=== PATIENT | male | born 1955 | race Caucasian/White ===

== ENCOUNTER 2017-08-02 20:00 | Inpatient (IN) | payer OTHER ==
[~2017-08-02] VITALS: Ht 165.1 cm; Wt 96.0 kg
[~2017-08-02 20:00] MED LIST: AMLO-145 PO; ASPI-676; CLOP75TA27 PO; CYCL-319 PO; HYDR-3498 PO; HYDR10TA36 PO; NAPR-260 PO; NAPR375T PO; OMEP20CA9 PO; RISP2TAB3 PO
[2017-08-02] MEDS ORDERED: SODIUM CHLORIDE 0.9% 1L BAG IV* STA (20:36)
[2017-08-02 20:57] LABS: ABNORMAL IP MESSAGE 1; BASOPHILS % 0.2 % (0.0-2.0); HEMATOCRIT 45.1 % (42.0-52.0); HEMOGLOBIN 14.9 g/dl (14.0-18.0); LYMPHOCYTES # 1.1 10^3/ul (0.8-2.9); LYMPHOCYTES % 5.1 % (15.0-51.0); MEAN CORPUSCULAR HEMOGLOBIN 28.3 pg (29.0-33.0); MEAN CORPUSCULAR VOLUME 85.6 fl (82.0-101.0); MEAN PLATELET VOLUME 10.3 fl (7.4-10.4); MONOCYTE # 1.6 10^3/ul (0.3-0.9); MONOCYTES % 7.5 % (0.0-11.0); NEUTROPHIL # 18.6 10^3/ul (1.6-7.5); NEUTROPHILS % 86.1 % (39.0-77.0); PLATELET COUNT 221 10^3/UL (140-415); POSITIVE DIFF @See below; RED BLOOD COUNT 5.27 10^6/ul (4.70-6.10); RED CELL DISTRIBUTION WIDTH 13.8 % (11.5-14.5); WHITE BLOOD COUNT 21.6 10^3/ul (4.8-10.8)
[2017-08-02] MEDS ORDERED: ACETAMINOPHEN 325 MG TAB PO ONE (21:00)
[2017-08-02 21:12] LABS: INR 1.02; PARTIAL THROMBOPLASTIN TIME 31.7 Sec (25.0-35.0); PROTIME 13.4 Sec (12.2-14.2)
[2017-08-02 21:15] LABS: ALBUMIN 4.4 g/dl (3.3-4.9); ALBUMIN/GLOBULIN RATIO 1.18; BILIRUBIN,INDIRECT 1.2 mg/dl (0-1.1); BILIRUBIN,TOTAL 1.2 mg/dl (0.2-1.3); CALCIUM 9.6 mg/dl (8.4-10.2); TOTAL PROTEIN 8.1 g/dl (6.1-8.1)
[2017-08-02 21:23] LABS: POTASSIUM 2.9 mmol/L (3.5-5.1)
[2017-08-02] MEDS ORDERED: CEFEPIME 2GM/50 ML (PMX) 50 ML IVPB STA (22:39)
--- NOTE | 2017-08-02 22:52 | RADRPT ---
PROCEDURE: XR Chest. CLINICAL INDICATION: Possible sepsis. TECHNIQUE: Single frontal view of the chest COMPARISON: 07/23/2013 FINDINGS: Mild cardiomegaly. Mild left lung base atelectasis. The lungs are otherwise clear. No signs of pleur al fluid or pneumothorax are seen. The osseous structures and soft tissues are unremarkable. IMPRESSION: Mild left lung base atelectasis, new over the interval. RPTAT: [facility] Physician Haile Date Time Electronically viewed and signed by Enrike Edmondson Physician on 08/02/2017 22:52 RS/
[2017-08-02 23:00] VITALS: TEMP 99.2
[2017-08-02] MEDS ORDERED: VANCOMYCIN 1 GM (PMX) 250 ML IVPB ONE (23:00)
--- NOTE | 2017-08-02 23:04 | ERA ---
ER Documentation Chief Complaint Date/Time DATE: 08/02/17 TIME: 23:01 Chief Complaint fever HPI This is a 62-year-old male with a history of dementia, previous stroke on aspirin and Plavix, hypertension is presenting with signs concerning for an infection and previous follow-up. The patient reportedly has not been feeling well for several days. He has had fever, chills with nausea and vomiting, nonbilious and nonbloody. The patient denies any chest pain or trouble breathing. It is unclear if he has had a cough. He does endorse epigastric discomfort, but no other abdominal pain. He denies any trouble with urination or bowel movements. The patient reportedly fell a few days ago and sustained a laceration to the left forehead. He does not endorse falling today. That said , there is an element of confusion and the patient, so it is unclear if all details are accurate. The patient was reportedly found on the ground by family this afternoon. It is unclear exactly how long he was therefore. Patient does not have any focal deficits. He has no weakness or numbness or tingling to the face or extremities. ROS All systems reviewed and are negative except as per history of present illness. Medications Home Meds Active Scripts Cyclobenzaprine Hcl* (Cyclobenzaprine Hcl*) 10 Mg Tablet, 10 MG PO TID, #15 TAB Prov:GLORIA RADER PA-C 07/22/15 Naproxen* (Naprosyn*) 500 Mg Tablet, 500 MG PO BID Y for PAIN AND/OR INFLAMMATION, #30 TAB Prov:GLORIA RADER PA-C 07/22/15 Hydrocodone Bit-Acetaminophen* ([place]*) 5-325 Mg Tab, 1 TAB PO Q6 Y for PAIN, # 15 TAB Prov:GLORIA RADER PA-C 07/22/15 Reported Medications Omeprazole* (Prilosec*) 20 Mg Capsule.dr, 20 MG PO DAILY 07/19/13 Clopidogrel Bisulfate (Clopidogrel) 75 Mg Tablet, 75 MG PO DAILY 07/19/13 Risperidone* (Risperidone*) 2 Mg Tablet, 2 MG PO QHS 07/19/13 Hydralazine Hcl* (Apresoline*) 10 Mg Tab, 10 MG PO BID 07/19/13 Naproxen* (Naprosyn*) 375 Mg Tablet, 375 MG PO BID 07/19/13 Amlodipine Besylate* (Amlodipine Besylate*) 5 Mg Tablet, 10 MG PO DAILY 07/19/13 Aspirin (Parisa Child) 81 Mg Chew 07/10/10 Allergies Allergies: Coded Allergies: No Known Drug Allergy (Verified Allergy, Mild, 07/23/13) PMhx/Soc Medical and Surgical Hx: pt denies Surgical Hx History of Surgery: No Anesthesia Reaction: No Hx Neurological Disorder: Yes (STROKE 2,3 YRS AGO WITH NO RESIDUAL) Hx Respiratory Disorders: No Hx Cardiac Disorders: No Hx Psychiatric Problems: No Hx Miscellaneous Medical Probl: Yes (HTN, CVA 2008) Hx Alcohol Use: Yes Hx Substance Use: No Hx Tobacco Use: No Smoking Status: Never smoker FmHx Family History: No diabetes Physical Exam Vitals Vital Signs Date Time Temp Pulse Resp B/P Pulse Ox O2 Delivery O2 Flow Rate FiO2 08/02/17 23:00 99.2 80 20 126/75 96 Nasal Cannula 3.0 08/02/17 20:08 103.6 95 20 160/89 98 08/02/17 20:08 103.6 95 20 160/89 98 Nasal Cannula 3.0 Physical Exam Const: NAD, Well developed, Well nourished Head: Atraumatic Eyes: Normal Conjunctiva ENT: Normal External Ears, Nose and Mouth. Neck: Full range of motion..~ No meningismus. Resp: Clear to auscultation bilaterally Cardio: Regular rate and rhythm, no murmurs Abd: Soft, non distended, epigastric tenderness. Normal bowel sounds Skin: No petechiae or rashes Back: No midline or flank tenderness Ext: No cyanosis, or edema, NBNB vomitus on his shoes Neur: Awake and alert, Oriented x 1 to person, Normal strength, normal sensation Psych: Normal Mood and Affect Result Diagram: 08/02/17201408/02/172014 Results 24 hrs Laboratory Tests Test 08/02/17 20:15 White Blood Count 21.610^3/ul Red Blood Count 5.2710^6/ul Hemoglobin 14.9g/dl Hematocrit 45.1% Mean Corpuscular Volume 85.6fl Mean Corpuscular Hemoglobin 28.3pg Mean Corpuscular Hemoglobin Concent 33.0g/dl Red Cell Distribution Width 13.8% Platelet Count 16957^3/UL Mean Platelet Volume 10.3fl Neutrophils % 86.1% Lymphocytes % 5.1% Monocytes % 7.5% Eosinophils % 0.0% Basophils % 0.2% Nucleated Red Blood Cells % 0.0/100WBC Neutrophils # 18.610^3/ul Lymphocytes # 1.110^3/ul Monocytes # 1.610^3/ul Eosinophils # 0.010^3/ul Basophils # 0.010^3/ul Nucleated Red Blood Cells # 0.010^3/ul Prothrombin Time 13.4Sec Prothrombin Time Ratio 1.0 INR International Normalized Ratio 1.02 Activated Partial Thromboplast Time 31.7Sec Sodium Level 141mmol/L Potassium Level 2.9mmol/L Chloride Level 101mmol/L Carbon Dioxide Level 29mmol/L Anion Gap 14 Blood Urea Nitrogen 17mg/dl Creatinine 1.00mg/dl Glucose Level 125mg/dl Lactic Acid Level 2.5mmol/L Calcium Level 9.6mg/dl Total Bilirubin 1.2mg/dl Direct Bilirubin 0.00mg/dl Indirect Bilirubin 1.2mg/dl Aspartate Amino Transf (AST/SGOT) 40IU/L Alanine Aminotransferase (ALT/SGPT) 27IU/L Alkaline Phosphatase 97IU/L Creatine Kinase 1256IU/L Total Protein 8.1g/dl Albumin 4.4g/dl Globulin 3.70g/dl Albumin/Globulin Ratio 1.18 Current Medications Medications (Trade) Dose Ordered Sig/Huber Route PRN Reason Start Time Stop Time Status Last Admin Dose Admin Sodium Chloride (NS) 2,500 ml BOLUS OVER 2 HOURS STAT IV* 08/02/17 20:36 08/02/17 20:39 DC 08/02/17 20:44 Acetaminophen 650 mg 650 mg ONCE ONCE PO 08/02/17 21:00 08/02/17 21:01 DC 08/02/17 21:20 Cefepime HCl 50 ml @ 100 mls/hr ONCE STAT IVPB 08/02/17 22:39 08/02/17 23:08 DC 08/02/17 22:57 Vancomycin HCl 250 ml @ 125 mls/hr ONCE ONCE IVPB 08/02/17 23:00 08/03/17 00:59 DC 08/02/17 23:37 Sodium Chloride (NS) 1,000 ml @ 80 mls/hr [id number] IV 08/02/17 23:20 08/03/17 11:49 08/02/17 23:37 Procedures/[facility] MDM The patient presents after being found down. He has symptoms consistent with an infection. I am also concerned of rhabdomyolysis. The patient does have a cut his left forehead that he states is old. However, we will obtained CT imaging of the head to evaluate for any possible head trauma. Labs Patient's blood work was obtained and reviewed. The patient does have a significant leukocytosis with a white count of 21.6. He is febrile. I am concerned of a systemic infection. He is not anemic. His platelet count is unremarkable. The patient's CMP does demonstrate a hypokalemia with potassium of 2.9. He will be given oral potassium repletion. The patient's lactic acid was initially 2.5. I am concerned of sepsis. His CK is over 1000, is concerning for rhabdomyolysis. Imaging CTH IMPRESSION: Chronic changes of atrophy and small vessel disease white matter are increased over interval since 07/23/2013. Otherwise, no acute process in the head. Electronically viewed and signed by Physician Haile on 08/02/2017 23:34 CXR IMPRESSION: Mild left lung base atelectasis, new over the interval. Electronically viewed and signed by Physician Haile on 08/02/2017 22:52 EKG EKG read by me: Rate/Rhythm: Regular rate and rhythm at a rate of 76 Intervals: Normal [place]: Left shifted TWI inversions in lateral leads, no ELAINA or STD Impression: No evidence of acute ischemia or arrhythmia Treatment/Disposition Patient's infectious symptoms have not stabilized and the patient is at risk of rapid decompensation. The patient will be admitted for careful hydration, antibiotic therapy, and infectious source control. The patient also has rhabdomyolysis. Hydration will help to improve this as well. Fortunately, he does not have an associated kidney injury. Patient does not have findings consistent with pneumonia on the chest x-ray. The patient's leukocytosis may indicate bacteremia. Blood cultures were sent off. Urine testing will also need to be performed. Broad-spectrum antibiotics will be initiated after collection of the blood work. Fortunately, the patient's CT head did not reveal any acute intracranial abnormality. He does not have anything focal, and I do not suspect a neurologic etiology from his fall. The patient does not have symptoms consistent with a cardiac etiology either. I do suspect an infectious cause. Severe Sepsis criteria: Infectious source: Unknown End organ damage indicated by: Lactate > 2.0 mmol/L Sepsis Management: Time of recognition of sepsis: Upon arrival Within 3 hours of recognition: Blood cultures x 2 before broad-spectrum antibiotics: Yes 30 ml/kg NS bolus Completed Initial lactate 2.5 Repeat lactate 1.0 Accepting Care Team Current data and ongoing care discussed. Admitting Physician: Rosina Outstanding Data: Culture results Critical Care: Critical care time: 35 minutes excluding all billable procedures Emergent fluid management while maintaining close respiratory support. Provision of immediate and broad-spectrum antibiotic therapy. Simultaneous assessment for possible sources in order to direct targeted therapy. Consideration for invasive and chemical support to prevent cardiopulmonary collapse. Departure Diagnosis: Primary Impression: Sepsis Qualified Code: A41.9 - Sepsis, due to unspecified organism Additional Impressions: Rhabdomyolysis Qualified Code: M62.82 - Non-traumatic rhabdomyolysis Hypokalemia Condition: Serious ARMANDO SERNA MD Aug 02, 2017 23:04
[2017-08-02] MEDS ORDERED: SOD CHLORIDE 0.9% 1,000 ML IV SCH (23:20)
[2017-08-02] MEDS ORDERED: ACETAMINOPHEN 325 MG TAB PO PRN (23:30)
[2017-08-02] MEDS ORDERED: ONDANSETRON 4 MG INJ IV PRN (23:30)
--- NOTE | 2017-08-02 23:34 | RADRPT ---
PROCEDURE: CT head, without contrast. CLINICAL INDICATION: Head trauma. TECHNIQUE: Noncontrast CT examination of the head, with axial, sagittal and coronal reformatted im ages. Automated dose exposure control was employed. CTDI: 43.27 and DLP: 720.23 COMPARISON: 07/23/2013 FINDINGS: Chronic changes of atrophy and small vessel disease white matter are increased over interval since 0 07/23/2013. No acute hemorrhage. Subarachnoid spaces are substantially preserved and symmetric. Ventricles ar e unremarkable. No mass effect. Smith-white matter distinction is preserved without evident decreased attenuation t o suggest acute or recent infarct. Sinuses and osseous structures are unremarkable. IMPRESSION: 1. Chronic changes of atrophy and small vessel disease white matter are increased over interval sinc e 07/23/2013. 2. Otherwise, no acute process in the head. RPTAT: [facility] Physician Haile Date Time Electronically viewed and signed by Physician Haile on 08/02/2017 23:34 RS/
[2017-08-03] VITALS (14 sets, daily range): BP systolic 116–183; BP diastolic 56–82; PULSE 74–93; RESP 17–20; Ht 165.1 cm; Wt 96.0 kg
[2017-08-03] MEDS ORDERED: POTASSIUM CHLORIDE (SR) 20 MEQ TAB PO STA ×2 (00:29→12:07)
[2017-08-03] MEDS ORDERED: ALPRAZOLAM 1 MG TAB PO PRN (02:00)
[2017-08-03] MEDS ORDERED: ONDANSETRON 4 MG INJ IV PRN (02:00)
[2017-08-03] MEDS ORDERED: VANCOMYCIN IV PER PHARMACY XX SCH (02:00)
[2017-08-03] MEDS ORDERED: MELO-210 PO (04:10)
[2017-08-03] MEDS ORDERED: PRAV20TA2 PO (04:10)
[2017-08-03] MEDS ORDERED: ALPR1TAB7 PO (04:10)
[2017-08-03] MEDS ORDERED: AMLO-147 PO (04:10)
[2017-08-03] MEDS ORDERED: CARV12.579 PO (04:10)
[2017-08-03] MEDS ORDERED: LISI20TA11 PO (04:10)
[2017-08-03] MEDS: VANCOMYCIN 1 GM in NS 250 ML IVPB SCH ×2 (04:18→15:59)
[2017-08-03] MEDS: PANTOPRAZOLE (EC) 40 MG TAB PO SCH (05:10)
[2017-08-03] MEDS ORDERED: PENDING SANTYL ORDER FOR WOUND CARE XX PRN (06:30)
--- NOTE | 2017-08-03 06:38 | HP ---
Date/Time of Note Date/Time of Note DATE: 08/03/17 TIME: 06:27 Assessment/Plan VTE Prophylaxis VTE Prophylaxis Intervention: SCD's Lines/Catheters IV Catheter Type (from Nrsg): Peripheral IV Assessment/Plan Assessment/Plan 1. Sepsis, as evidenced by fever, leukocytosis and tachycardia, most likely source of infection is pressure type of ulcer that he has on his left buttock -IV antibiotic -Follow-up culture results -Wound care consult -ID consult 2. Hypokalemia -Replete 3. History of CVA -Patient previously on Plavix and aspirin but he is a current home medication does not include any of them -Start aspirin, continue statin -Physical therapy eval 4. Hypertension -Continue antihypertensives adjustment as needed 5. History of dyslipidemia -Continue statin HPI/ROS Admit Date/Time Admit Date/Time Aug 02, 2017 at 23:23 Hx of Present Illness This is a 62-year-old male with a history of CVA, hypertension, dyslipidemia, peripheral vascular disease who presented to the ER complaining of abdominal pain, fever and probable altered mentation. Patient is not fully oriented and that his history is not reliable and as such information is gathered from chart review and from the ER physician. Patient fell sustaining some superficial laceration to the left forehead, per patient's 2 days ago but per daughter today. Patient does not have any complaints and he is saying that he is feeling well. When he presented to the ER, BP 160/89, heart rate 95. He was febrile with a temp of 103.6. Labs shows a WBC of almost 22,000, potassium 2.9 and initial lactate 2.5 which trended down to 1. Urinalysis negative for UTI. Chest x-ray shows new left lung base mild atelectasis. Head CT shows atrophy and a worsening small vessel microangiopathic change. Patient has swelling, erythema was some ulcer on his left buttock. Patient stated that she was not aware of this and it denied pain in the area. PMH/Family/Social Social History Smoking Status: Never smoker Exam/Review of Systems Vital Signs Vitals Vital Signs Date Time Temp Pulse Resp B/P Pulse Ox O2 Delivery O2 Flow Rate FiO2 08/03/17 04:04 98.9 80 17 136/76 97 08/03/17 02:00 2.0 08/03/17 01:15 Nasal Cannula Intake and Output 08/02/17 08/02/17 08/03/17 15:00 23:00 07:00 Intake Total 280 ml Output Total 300 ml Balance -20 ml Exam Constitutional: other (No acute distress. Oriented to location and name but not year) Head: atraumatic, normocephalic Eyes: PERRL Respiratory: clear to auscultation, normal air movement Cardiovascular: regular rate and rhythm Gastrointestinal: non-tender, soft Extremities: normal pulses Neurological: nl strength, other (Not fully oriented) Skin: other (There is some swelling, skin change and erythema in the left buttock) Labs Result Diagram: 08/02/17201408/02/172014 Medications Medications Current Medications Sodium Chloride 1,000 ml @ 80 mls/hr [id number] IV Last administered on t 23:37; Admin Dose 80 MLS/HR; Start 08/02/17 at 23:20; Stop 08/03/17 at 11: 49 Cefepime HCl (Maxipime 1gm/50 ml (Pmx)) 50 ml @ 100 mls/hr Q12 IVPB ; Start at 09:00 Amlodipine Besylate (Norvasc) 10 mg DAILY PO ; Start 08/03/17 at 09:00 Alprazolam (Xanax) 1 mg Q12H PRN PO ANXIETY; Start 08/03/17 at 02:00 Meloxicam (Mobic) 15 mg DAILY PO ; Start 08/03/17 at 09:00 Lisinopril (Zestril) 20 mg DAILY PO ; Start 08/03/17 at 09:00 Carvedilol (Coreg) 12.5 mg BID PO ; Start 08/03/17 at 09:00 Atorvastatin Calcium (Lipitor) 20 mg HS PO ; Start 08/03/17 at 21:00 Aspirin (Aspirin) 81 mg DAILY PO ; Start 08/03/17 at 09:00 Ondansetron HCl (Zofran Inj) 4 mg Q6H PRN IV NAUSEA AND/OR VOMITING; Start at 02:00 Heparin Sodium (Porcine) (Heparin (5000 Units/0.5 ml)) 5,000 unit BID SC ; Start 08/03/17 at 09:00 Acetaminophen (Tylenol Tab) 650 mg Q6H PRN PO PAIN AND OR ELEVATED TEMP; Start 08/03/17 at 02:00 Pantoprazole 40 mg 40 mg DAILY@06 PO Last administered on 08/03/17 05:10; Admin Dose 40 MG; Start 08/03/17 at 06:00 Vancomycin HCl (Vancocin) 250 ml @ 125 mls/hr Q12H IVPB Last administered on 04:18; Admin Dose 125 MLS/HR; Start 08/03/17 at 04:00 Miscellaneous Information (Pending Santyl Order For Wound Care) This patient knight... PRN PRN XX WOUND CARE; Start 08/03/17 at 06:30 JCARLOS GRANDE MD Aug 03, 2017 06:38
[2017-08-03 06:41] LABS: ABNORMAL IP MESSAGE 1; BASOPHILS % 0.2 % (0.0-2.0); HEMATOCRIT 39.2 % (42.0-52.0); LYMPHOCYTES # 1.2 10^3/ul (0.8-2.9); LYMPHOCYTES % 5.3 % (15.0-51.0); MEAN CORPUSCULAR HEMOGLOBIN 28.6 pg (29.0-33.0); MEAN CORPUSCULAR HGB CONC 33.2 g/dl (32.0-37.0); MEAN CORPUSCULAR VOLUME 86.3 fl (82.0-101.0); MEAN PLATELET VOLUME 9.8 fl (7.4-10.4); MONOCYTES % 9.1 % (0.0-11.0); NEUTROPHIL # 18.3 10^3/ul (1.6-7.5); NEUTROPHILS % 84.1 % (39.0-77.0); PLATELET COUNT 179 10^3/UL (140-415); POSITIVE DIFF @See below; RED BLOOD COUNT 4.54 10^6/ul (4.70-6.10); WHITE BLOOD COUNT 21.8 10^3/ul (4.8-10.8)
[2017-08-03 07:19] LABS: ALBUMIN 3.3 g/dl (3.3-4.9); ALBUMIN/GLOBULIN RATIO 1.06; BILIRUBIN,INDIRECT 0.8 mg/dl (0-1.1); BILIRUBIN,TOTAL 0.8 mg/dl (0.2-1.3); CALCIUM 8.2 mg/dl (8.4-10.2); CHOL/HDL RATIO 2.6 RATIO; CREATININE 0.84 mg/dl (0.61-1.24); MAGNESIUM 1.8 mg/dl (1.7-2.5); PHOSPHORUS 2.9 mg/dl (2.5-4.9); POTASSIUM 3.4 mmol/L (3.5-5.1); TOTAL PROTEIN 6.4 g/dl (6.1-8.1)
[2017-08-03] MEDS: CEFEPIME 1GM/50 ML (PMX) 50 ML IVPB SCH ×2 (08:36→21:04)
[2017-08-03] MEDS: MELOXICAM 15 MG TAB PO SCH (08:36)
[2017-08-03] MEDS: ASPIRIN 81 MG TAB PO SCH (08:36)
[2017-08-03] MEDS ORDERED: AMLODIPINE 10 MG TAB PO SCH (09:00)
[2017-08-03] MEDS ORDERED: LISINOPRIL 20 MG TAB PO SCH (09:00)
[2017-08-03] MEDS: HEPARIN 5,000 UNIT/0.5 ML VIAL SC SCH ×2 (09:15→21:14)
--- NOTE | 2017-08-03 12:18 | PN ---
Date/Time of Note Date/Time of Note DATE: 08/03/17 TIME: 12:15 Assessment/Plan VTE Prophylaxis VTE Prophylaxis Intervention: SCD's Lines/Catheters IV Catheter Type (from Nrs): Peripheral IV Urinary Cath still in place: No Assessment/Plan Problems: (1) Arielle-rectal abscess Status: Acute Comment: This will probably need to be opened up and cleaned up. I will contact general surgery to assist with this. (2) Sepsis Status: Acute Comment: Possible source for this is a perirectal abscess. He is on antibiotics but ultimately he is going to need a drainage procedure Qualifiers: Sepsis type: sepsis due to unspecified organism Qualified Code: A41.9 - Sepsis, due to unspecified organism (3) Rhabdomyolysis Status: Acute Comment: Resolving. Recheck CPK in the morning Qualifiers: Rhabdomyolysis type: non-traumatic Qualified Code: M62.82 - Non-traumatic rhabdomyolysis (4) Hypokalemia Status: Acute Comment: Replete the potassium orally Subjective 24 Hr Interval Summary Free Text/Dictation Pleasant male who reports he is having fevers and shaking chills Constitutional: chills, febrile Respiratory: no complaints Cardiovascular: no complaints Gastrointestinal: no complaints Skin: other (Planes of painful areas skin left perirectal area) Exam/Review of Systems Vital Signs Vitals Vital Signs Date Time Temp Pulse Resp B/P Pulse Ox O2 Delivery O2 Flow Rate FiO2 08/03/17 11:34 98.4 73 19 133/69 98 08/03/17 07:40 3.0 08/03/17 01:15 Nasal Cannula 08/03/17 00:10 28 Intake and Output 08/02/17 08/02/17 08/03/17 15:00 23:00 07:00 Intake Total 280 ml Output Total 300 ml Balance -20 ml Exam Constitutional: alert, oriented Neck: non-tender, supple Respiratory: clear to auscultation, normal air movement Cardiovascular: nl pulses, regular rate and rhythm Gastrointestinal: nl liver, spleen, non-tender, other (Tender swollen area with fluctuance left perirectal), soft Results Result Diagram: 08/03/1717 08/03/1717 Results 24 hrs Laboratory Tests Test 08/02/17 20:15 08/02/17 23:39 08/03/17 06:17 White Blood Count 21.6 #H 21.8 H Red Blood Count 5.27 4.54 L Hemoglobin 14.9 13.0 L Hematocrit 45.1 39.2 L Mean Corpuscular Volume 85.6 86.3 Mean Corpuscular Hemoglobin 28.3 L 28.6 L Mean Corpuscular Hemoglobin Concent 33.0 33.2 Red Cell Distribution Width 13.8 14.0 Platelet Count 221 179 Mean Platelet Volume 10.3 # 9.8 Neutrophils % 86.1 H 84.1 H Lymphocytes % 5.1 L 5.3 L Monocytes % 7.5 9.1 Eosinophils % 0.0 0.0 Basophils % 0.2 0.2 Nucleated Red Blood Cells % 0.0 0.0 Neutrophils # 18.6 H 18.3 H Lymphocytes # 1.1 1.2 Monocytes # 1.6 H 2.0 H Eosinophils # 0.0 0.0 Basophils # 0.0 0.0 Nucleated Red Blood Cells # 0.0 0.0 Prothrombin Time 13.4 Prothrombin Time Ratio 1.0 INR International Normalized Ratio 1.02 Activated Partial Thromboplast Time 31.7 Sodium Level 141 143 Potassium Level 2.9 *L 3.4 L Chloride Level 101 108 Carbon Dioxide Level 29 27 Anion Gap 14 11 Blood Urea Nitrogen 17 16 Creatinine 1.00 0.84 Glucose Level 125 108 Lactic Acid Level 2.5 *H 1.0 Calcium Level 9.6 8.2 L Total Bilirubin 1.2 0.8 Direct Bilirubin 0.00 0.00 Indirect Bilirubin 1.2 H 0.8 Aspartate Amino Transf (AST/SGOT) 40 34 Alanine Aminotransferase (ALT/SGPT) 27 27 Alkaline Phosphatase 97 70 Creatine Kinase 1256 H Total Protein 8.1 6.4 # Albumin 4.4 3.3 # Globulin 3.70 H 3.10 Albumin/Globulin Ratio 1.18 1.06 Hemoglobin A1c 6.2 H Phosphorus Level 2.9 Magnesium Level 1.8 Triglycerides Level 64 Cholesterol Level 106 LDL Cholesterol, Calculated 53 HDL Cholesterol 40 Cholesterol/HDL Ratio 2.6 Medications Medications Current Medications Cefepime HCl (Maxipime 1gm/50 ml (Pmx)) 50 ml @ 100 mls/hr Q12 IVPB Last administered on 08/03/17t 08:36; Admin Dose 100 MLS/HR; Start 08/03/17 at 09:00 Alprazolam (Xanax) 1 mg Q12H PRN PO ANXIETY; Start 08/03/17 at 02:00 Meloxicam (Mobic) 15 mg DAILY PO Last administered on 08/03/17 08:36; Admin Dose 15 MG; Start 08/03/17 at 09:00 Atorvastatin Calcium (Lipitor) 20 mg HS PO ; Start 08/03/17 at 21:00 Aspirin (Aspirin) 81 mg DAILY PO Last administered on 08/03/17 08:36; Admin Dose 81 MG; Start 08/03/17 at 09:00 Ondansetron HCl (Zofran Inj) 4 mg Q6H PRN IV NAUSEA AND/OR VOMITING; Start at 02:00 Heparin Sodium (Porcine) (Heparin (5000 Units/0.5 ml)) 5,000 unit BID SC Last administered on 08/03/17 09:15; Admin Dose 5,000 UNIT; Start 08/03/17 at 09:00 Acetaminophen (Tylenol Tab) 650 mg Q6H PRN PO PAIN AND OR ELEVATED TEMP; Start 08/03/17 at 02:00 Pantoprazole 40 mg 40 mg DAILY@06 PO Last administered on 08/03/17 05:10; Admin Dose 40 MG; Start 08/03/17 at 06:00 Vancomycin HCl (Vancocin) 250 ml @ 125 mls/hr Q12H IVPB Last administered on 04:18; Admin Dose 125 MLS/HR; Start 08/03/17 at 04:00 Miscellaneous Information (Pending Santyl Order For Wound Care) This patient knight... PRN PRN XX WOUND CARE; Start 08/03/17 at 06:30 Miscellaneous Information (*Rx Drug Level Order Reminder*) VANCOMYCIN TROUGH AT 1500 ONCE ONCE XX ; Start 08/04/17 at 15:00; Stop 08/04/17 at 15:01 Amlodipine Besylate (Norvasc) 5 mg DAILY PO ; Start 08/04/17 at 09:00; Status UNV Carvedilol (Coreg) 25 mg BID PO ; Start 08/03/17 at 21:00; Status UNV Lisinopril (Zestril) 40 mg DAILY PO ; Start 08/04/17 at 09:00; Status UNV CAMPOS BIGGS MD Aug 03, 2017 12:18
--- NOTE | 2017-08-03 13:05 | CONS ---
DATE OF ADMISSION: 08/02/2017 DATE OF CONSULTATION: 08/03/2017 REASON FOR CONSULTATION: Antibiotic management. HISTORY OF PRESENT ILLNESS: Yoni Dalal s a 62-year-old male with numerous problems, who comes in now with sepsis and is being seen for antibiotic management. His past problems include: 1. History of CVA. 2. Hypertension. 3. Dyslipidemia. 4. Peripheral vascular disease. Acutely, the patient presented to the emergency room with abdominal pain, fevers and altered mentation. The patient fell, sustaining some superficial lacerations to his left forehead about 2 days ago. In the emergency room, his blood pressure was 160/90. His temperature was 103.6. Heart rate was 95. White count of 22,000, potassium 2.9, initial lactate 2.5. A chest x- ray shows new left lung base mild atelectasis. CT scan of the head shows atrophy and worsening small-vessel microangiopathic changes. The patient was noted to have some swelling and also over the left buttock. PAST MEDICAL HISTORY: Operations as outlined. FAMILY HISTORY: Noncontributory. SOCIAL HISTORY: He does not smoke, drink, or abuse drugs. ALLERGIES: NONE TO PENICILLIN, SULFA, OR FOODS. MEDICATION: Per chart. REVIEW OF SYSTEMS: As per history of present illness. PHYSICAL EXAMINATION: GENERAL: Patient is a well-developed, well-nourished male who looks chronically ill in no acute distress. VITAL SIGNS: Stable. He is afebrile. SKIN: Without generalized rash. As noted, he has swelling and skin changes with erythema of the left buttock. HEENT: Within normal limits. NECK: Supple. Lymph nodes nonpalpable. CHEST: Decreased breath sounds at the bases. HEART: Without murmur or gallop. ABDOMEN: Soft, nontender, without organosplenomegaly or masses. EXTREMITIES: Without cyanosis, clubbing, or edema. RECTAL: Deferred. NEUROLOGICAL: Patient is somewhat confused. He has no other from focal neurological abnormalities. LABORATORY: As noted, his white count on admission was close to 22,000 and was 21.6, H and H 14.9 and 45.1, platelet count 221,000. BUN and creatinine 17/1 potassium of 2.9, glucose 125. IMPRESSION: The patient has cellulitis of left buttock. He was started on vancomycin and cefepime. We will await the culture reports. I will dictate my findings to the hospitalist. Dictated By: Low Livingston MD JD/skylar/jarod /Document#: [id number]
[2017-08-03 14:05] LABS: ADD UMIC YES; UR ASCORBIC ACID NEGATIVE (NEGATIVE); UR BILIRUBIN (Dip) NEGATIVE (NEGATIVE); UR BLOOD (Dip) 2+ mg/dL (NEGATIVE); UR CLARITY SLIGHTLY CLOUDY (CLEAR); UR COLOR AMBER (YELLOW); UR GLUCOSE (Dip) NEGATIVE (NEGATIVE); UR KETONES (Dip) 1+ mg/dL (NEGATIVE); UR LEUKOCYTE ESTERASE (Dip) NEGATIVE Leu/ul (NEGATIVE); UR MUCUS FEW /HPF (NONE SEEN); UR NITRITE (Dip) NEGATIVE (NEGATIVE); UR RBC 7 /HPF (0-5); UR SPECIFIC GRAVITY (Dip) 1.023 (1.003-1.030); UR TOTAL PROTEIN (Dip) 1+ mg/dl (NEGATIVE); UR UROBILINOGEN (Dip) 2+ mg/dL (NEGATIVE)
--- NOTE | 2017-08-03 14:56 | CONS ---
Date/Time of Note Date/Time of Note DATE: 08/03/17 TIME: 14:44 Assessment/Plan Assessment/Plan Chief Complaint/Hosp Course 1. Left buttock cellulitis possible abscess. Incision and drainage was recommended however patient is refusing at this time and wants an imaging to confirm it. -CT -IV antibiotics -IV fluids -Offloading -Warm compress 2. Significant leukocytosis with sepsis possibly secondary above possibly other -As above 3. Morbid obese -Encourage diet optimization -Encourage exercise 4. CVA history -Medical optimization 5. Hypertension -Diet and medication optimization -Weight loss recommended 6. Hypokalemia -Replete 7. Elevated alkaline phosphatase of unknown etiology -Imaging -Workup per medical team 8. Lactic acidosis secondary to above -As above Thank you very much for consulting me in this patient's care, Problems: Consultation Date/Type/Reason Admit Date/Time Aug 02, 2017 at 23:23 Date of Consultation: Aug 03, 2017 Type of Consultation: General surgical Reason for Consultation Left buttock swelling with cellulitis and possible abscess Leukocytosis with sepsis Morbid obesity, BMI 35 Referring Provider: CAMPOS BIGGS MD Constitutional: chills, febrile, No diaphoresis Eyes: No discharge ENT: No congestion, No discharge, No dysphagia Respiratory: no complaints, No shortness of breath Cardiovascular: no complaints, No chest pain, No edema Gastrointestinal: no complaints, passing stool, No nausea, No pain, No vomiting Genitourinary: No dysuria Musculoskeletal: back pain Skin: bruising, erythema, other (Planes of painful areas skin left perirectal area) Neurologic: No dizziness, No seizure Endocrine: dry skin, No polydypsia, No polyuria Lymphatic: No adenopathy, No tender nodes Psychological: nl mood/affect, No anxiety Immunologic: No pruritis, No rhinitis Past Medical History Morbid obesity, bmi 35 CVA hx HTN Sepsis Leukocytosis Hypokalemia Lactic acidosis Elevated alk phos [place] Past Surgical History Forehead laceration repair at 5yo Family History Significant Family History: hypertension Social History Alcohol Use: none Smoking Status: Never smoker Drug Use: none Exam/Review of Systems Vital Signs Vitals Vital Signs Date Time Temp Pulse Resp B/P Pulse Ox O2 Delivery O2 Flow Rate FiO2 08/03/17 12:39 74 08/03/17 11:34 98.4 19 133/69 98 08/03/17 07:40 3.0 08/03/17 01:15 Nasal Cannula 08/03/17 00:10 28 Intake and Output 08/02/17 08/02/17 08/03/17 15:00 23:00 07:00 Intake Total 280 ml Output Total 300 ml Balance -20 ml Exam Constitutional: alert, obese, oriented, No distress Psych: nl mood/affect, No anxiety Head: atraumatic, normocephalic Eyes: EOMI, PERRL, nl conjunctiva, No icteric ENMT: mucosa pink and moist, nl external ears & nose Neck: non-tender, supple Respiratory: normal air movement, No congested cough, No labored breathing Cardiovascular: edema, regular rate and rhythm Gastrointestinal: non-tender, soft, No rebound or guarding Musculoskeletal: nl extremities to inspection, No joint tenderness Extremities: normal pulses, No calf tenderness, No cyanosis Neurological: nl mental status, nl speech, nl strength Skin: rash or lesions (left buttock induration, tenderness, erythema), No diaphoresis Lymph: nl lymph nodes, nontender Results Result Diagram: 08/03/1761608/03/1717 Results 24 hrs Laboratory Tests Test 08/02/17 20:15 08/02/17 23:39 08/03/17 05:15 08/03/17 06:17 White Blood Count 21.6 #H 21.8 H Red Blood Count 5.27 4.54 L Hemoglobin 14.9 13.0 L Hematocrit 45.1 39.2 L Mean Corpuscular Volume 85.6 86.3 Mean Corpuscular Hemoglobin 28.3 L 28.6 L Mean Corpuscular Hemoglobin Concent 33.0 33.2 Red Cell Distribution Width 13.8 14.0 Platelet Count 221 179 Mean Platelet Volume 10.3 # 9.8 Neutrophils % 86.1 H 84.1 H Lymphocytes % 5.1 L 5.3 L Monocytes % 7.5 9.1 Eosinophils % 0.0 0.0 Basophils % 0.2 0.2 Nucleated Red Blood Cells % 0.0 0.0 Neutrophils # 18.6 H 18.3 H Lymphocytes # 1.1 1.2 Monocytes # 1.6 H 2.0 H Eosinophils # 0.0 0.0 Basophils # 0.0 0.0 Nucleated Red Blood Cells # 0.0 0.0 Prothrombin Time 13.4 Prothrombin Time Ratio 1.0 INR International Normalized Ratio 1.02 Activated Partial Thromboplast Time 31.7 Sodium Level 141 143 Potassium Level 2.9 *L 3.4 L Chloride Level 101 108 Carbon Dioxide Level 29 27 Anion Gap 14 11 Blood Urea Nitrogen 17 16 Creatinine 1.00 0.84 Glucose Level 125 108 Lactic Acid Level 2.5 *H 1.0 Calcium Level 9.6 8.2 L Total Bilirubin 1.2 0.8 Direct Bilirubin 0.00 0.00 Indirect Bilirubin 1.2 H 0.8 Aspartate Amino Transf (AST/SGOT) 40 34 Alanine Aminotransferase (ALT/SGPT) 27 27 Alkaline Phosphatase 97 70 Creatine Kinase 1256 H Total Protein 8.1 6.4 # Albumin 4.4 3.3 # Globulin 3.70 H 3.10 Albumin/Globulin Ratio 1.18 1.06 Urine Color SAI Urine Clarity SLIGHTLY CLOUDY A Urine pH 5.0 Urine Specific [place] 1.023 Urine Ketones 1+ H Urine Nitrite NEGATIVE Urine Bilirubin NEGATIVE Urine Urobilinogen 2+ H Urine Leukocyte Esterase NEGATIVE Urine Microscopic RBC 7 H Urine Microscopic WBC 5 Urine Mucus FEW A Urine Hemoglobin 2+ H Urine Glucose NEGATIVE Urine Total Protein 1+ H Hemoglobin A1c 6.2 H Phosphorus Level 2.9 Magnesium Level 1.8 Triglycerides Level 64 Cholesterol Level 106 LDL Cholesterol, Calculated 53 HDL Cholesterol 40 Cholesterol/HDL Ratio 2.6 Medications Medications Current Medications Cefepime HCl (Maxipime 1gm/50 ml (Pmx)) 50 ml @ 100 mls/hr Q12 IVPB Last administered on 08/03/17 08:36; Admin Dose 100 MLS/HR; Start 08/03/17 at 09:00 Alprazolam (Xanax) 1 mg Q12H PRN PO ANXIETY; Start 08/03/17 at 02:00 Meloxicam (Mobic) 15 mg DAILY PO Last administered on 08/03/17 08:36; Admin Dose 15 MG; Start 08/03/17 at 09:00 Atorvastatin Calcium (Lipitor) 20 mg HS PO ; Start 08/03/17 at 21:00 Aspirin (Aspirin) 81 mg DAILY PO Last administered on 08/03/17 08:36; Admin Dose 81 MG; Start 08/03/17 at 09:00 Ondansetron HCl (Zofran Inj) 4 mg Q6H PRN IV NAUSEA AND/OR VOMITING; Start at 02:00 Heparin Sodium (Porcine) (Heparin (5000 Units/0.5 ml)) 5,000 unit BID SC Last administered on 08/03/17 09:15; Admin Dose 5,000 UNIT; Start 08/03/17 at 09:00 Acetaminophen (Tylenol Tab) 650 mg Q6H PRN PO PAIN AND OR ELEVATED TEMP; Start 08/03/17 at 02:00 Pantoprazole 40 mg 40 mg DAILY@06 PO Last administered on 08/03/17 05:10; Admin Dose 40 MG; Start 08/03/17 at 06:00 Vancomycin HCl (Vancocin) 250 ml @ 125 mls/hr Q12H IVPB Last administered on 04:18; Admin Dose 125 MLS/HR; Start 08/03/17 at 04:00 [facility]isc[facility] This patient knight... PRN PRN XX WOUND CARE; Start 08/03/17 at 06:30 Miscellaneous Information (*Rx Drug Level Order Reminder*) VANCOMYCIN TROUGH AT 1500 ONCE ONCE XX ; Start 08/04/17 at 15:00; Stop 08/04/17 at 15:01 Amlodipine Besylate (Norvasc) 5 mg DAILY PO ; Start 08/04/17 at 09:00 Carvedilol (Coreg) 25 mg BID PO ; Start 08/03/17 at 21:00 Lisinopril (Zestril) 40 mg DAILY PO ; Start 08/04/17 at 09:00 MEREDITH WAGNER MD Aug 03, 2017 14:56
[2017-08-03] MEDS ORDERED: hydrALAzine 20 MG INJ IV STA (15:47)
[2017-08-03] MEDS: ACETAMINOPHEN 325 MG TAB PO PRN (15:57)
[2017-08-03] MEDS ORDERED: IOHEXOL 14.3 MG(I)/ML (ADULT) BTL PO SCH (16:00)
--- NOTE | 2017-08-03 18:44 | CONS ---
Date/Time of Note Date/Time of Note DATE: 08/03/17 TIME: 18:36 Assessment/Plan Assessment/Plan Chief Complaint/Hosp Course ID PROGRESS NOTE CURRENT ABX: Vanco IV + Cefepime 24H INTERVAL SUMMARY * Morbid obese M -> fevers improved, VSS, leukocytosis persisting * Declined Dr. Lebron recommendation for I&D of likely buttock abscess, cited preference for imaging to confirm EXAM GEN: 62 yo M HEENT: Unremarkable NECK: supple CVS: RRR CHEST: Equal chest rise bilaterally, without dyspnea on observation ABD: Soft, NT EXT: No c/c/e NEURO: Grossly intact, moves all extremities SKIN: No diaphoresis, no obvious rash ID ASSESSMENT 62 yo M w/PMHx CVA admit with: 1. Sepsis, as evidenced by fever, leukocytosis, lactic acidosis, and tachycardia due to #2 2. Left Buttock cellulitis, probably abscess 3. Hypertension 4. History of dyslipidemia INVASIVES: PIV ABX ALLERGY: KNDA CURRENT ABX: Vanco IV + Cefepime ID RECOMMENDATIONS 1. Continue ABX -- CT ABD/Pelvis on order-> If (+)Abscess will need I&D 2. May need higher dose Cefepime due to obesity Problems: Consultation Date/Type/Reason Admit Date/Time Aug 02, 2017 at 23:23 Initial Consult Date 08/03/17 Type of Consultation: ID Referring Provider: CAMPOS BIGGS MD Exam/Review of Systems Vital Signs Vitals Vital Signs Date Time Temp Pulse Resp B/P Pulse Ox O2 Delivery O2 Flow Rate FiO2 08/03/17 17:33 98.7 74 144/66 08/03/17 15:34 18 96 08/03/17 07:40 3.0 08/03/17 01:15 Nasal Cannula 08/03/17 00:10 28 Intake and Output 08/02/17 08/02/17 08/03/17 15:00 23:00 07:00 Intake Total 280 ml Output Total 300 ml Balance -20 ml Results Result Diagram: 08/03/17 0617 08/03/17 0617 Results 24 hrs Laboratory Tests Test 08/02/17 20:15 08/02/17 23:39 08/03/17 05:15 08/03/17 06:17 White Blood Count 21.6 #H 21.8 H Red Blood Count 5.27 4.54 L Hemoglobin 14.9 13.0 L Hematocrit 45.1 39.2 L Mean Corpuscular Volume 85.6 86.3 Mean Corpuscular Hemoglobin 28.3 L 28.6 L Mean Corpuscular Hemoglobin Concent 33.0 33.2 Red Cell Distribution Width 13.8 14.0 Platelet Count 221 179 Mean Platelet Volume 10.3 # 9.8 Neutrophils % 86.1 H 84.1 H Lymphocytes % 5.1 L 5.3 L Monocytes % 7.5 9.1 Eosinophils % 0.0 0.0 Basophils % 0.2 0.2 Nucleated Red Blood Cells % 0.0 0.0 Neutrophils # 18.6 H 18.3 H Lymphocytes # 1.1 1.2 Monocytes # 1.6 H 2.0 H Eosinophils # 0.0 0.0 Basophils # 0.0 0.0 Nucleated Red Blood Cells # 0.0 0.0 Prothrombin Time 13.4 Prothrombin Time Ratio 1.0 INR International Normalized Ratio 1.02 Activated Partial Thromboplast Time 31.7 Sodium Level 141 143 Potassium Level 2.9 *L 3.4 L Chloride Level 101 108 Carbon Dioxide Level 29 27 Anion Gap 14 11 Blood Urea Nitrogen 17 16 Creatinine 1.00 0.84 Glucose Level 125 108 Lactic Acid Level 2.5 *H 1.0 Calcium Level 9.6 8.2 L Total Bilirubin 1.2 0.8 Direct Bilirubin 0.00 0.00 Indirect Bilirubin 1.2 H 0.8 Aspartate Amino Transf (AST/SGOT) 40 34 Alanine Aminotransferase (ALT/SGPT) 27 27 Alkaline Phosphatase 97 70 Creatine Kinase 1256 H Total Protein 8.1 6.4 # Albumin 4.4 3.3 # Globulin 3.70 H 3.10 Albumin/Globulin Ratio 1.18 1.06 Urine Color SAI Urine Clarity SLIGHTLY CLOUDY A Urine pH 5.0 Urine Specific [place] 1.023 Urine Ketones 1+ H Urine Nitrite NEGATIVE Urine Bilirubin NEGATIVE Urine Urobilinogen 2+ H Urine Leukocyte Esterase NEGATIVE Urine Microscopic RBC 7 H Urine Microscopic WBC 5 Urine Mucus FEW A Urine Hemoglobin 2+ H Urine Glucose NEGATIVE Urine Total Protein 1+ H Hemoglobin A1c 6.2 H Phosphorus Level 2.9 Magnesium Level 1.8 Triglycerides Level 64 Cholesterol Level 106 LDL Cholesterol, Calculated 53 HDL Cholesterol 40 Cholesterol/HDL Ratio 2.6 Medications Medications Current Medications Cefepime HCl (Maxipime 1gm/50 ml (Pmx)) 50 ml @ 100 mls/hr Q12 IVPB Last administered on 08/03/17 08:36; Admin Dose 100 MLS/HR; Start 08/03/17 at 09:00 Alprazolam (Xanax) 1 mg Q12H PRN PO ANXIETY; Start 08/03/17 at 02:00 Meloxicam (Mobic) 15 mg DAILY PO Last administered on 08/03/17 08:36; Admin Dose 15 MG; Start 08/03/17 at 09:00 Atorvastatin Calcium (Lipitor) 20 mg HS PO ; Start 08/03/17 at 21:00 Aspirin (Aspirin) 81 mg DAILY PO Last administered on 08/03/17 08:36; Admin Dose 81 MG; Start 08/03/17 at 09:00 Ondansetron HCl (Zofran Inj) 4 mg Q6H PRN IV NAUSEA AND/OR VOMITING; Start at 02:00 Heparin Sodium (Porcine) (Heparin (5000 Units/0.5 ml)) 5,000 unit BID SC Last administered on 08/03/17 09:15; Admin Dose 5,000 UNIT; Start 08/03/17 at 09:00 Acetaminophen (Tylenol Tab) 650 mg Q6H PRN PO PAIN AND OR ELEVATED TEMP Last administered on 08/03/17 15:57; Admin Dose 650 MG; Start 08/03/17 at 02:00 Pantoprazole 40 mg 40 mg DAILY@06 PO Last administered on 08/03/17 05:10; Admin Dose 40 MG; Start 08/03/17 at 06:00 Vancomycin HCl (Vancocin) 250 ml @ 125 mls/hr Q12H IVPB Last administered on 15:59; Admin Dose 125 MLS/HR; Start 08/03/17 at 04:00 Miscellaneous Information (Pending [facility]yl Order For Wound Care) This patient knight... PRN PRN XX WOUND CARE; Start 08/03/17 at 06:30 Miscellaneous Information (*Rx Drug Level Order Reminder*) VANCOMYCIN TROUGH AT 1500 ONCE ONCE XX ; Start 08/04/17 at 15:00; Stop 08/04/17 at 15:01 Amlodipine Besylate (Norvasc) 5 mg DAILY PO ; Start 08/04/17 at 09:00 Carvedilol (Coreg) 25 mg BID PO ; Start 08/03/17 at 21:00 Lisinopril (Zestril) 40 mg DAILY PO ; Start 08/04/17 at 09:00 BETHANY EDWARDS NP Aug 03, 2017 18:44
[2017-08-03] MEDS: ATORVASTATIN 20 MG TAB PO SCH (21:03)
[2017-08-04] VITALS (12 sets, daily range): BP systolic 128–154; BP diastolic 60–75; PULSE 65–76; RESP 16–23
[2017-08-04] MEDS: VANCOMYCIN 1 GM in NS 250 ML IVPB SCH ×2 (03:46→17:05)
[2017-08-04] MEDS: PANTOPRAZOLE (EC) 40 MG TAB PO SCH (05:41)
[2017-08-04 07:30] LABS: BASOPHILS % 0.2 % (0.0-2.0); EOSINOPHILS # 0.3 10^3/ul (0.0-0.5); EOSINOPHILS % 1.7 % (0.0-7.0); HEMATOCRIT 37.4 % (42.0-52.0); HEMOGLOBIN 12.3 g/dl (14.0-18.0); LYMPHOCYTES % 6.6 % (15.0-51.0); MEAN CORPUSCULAR HEMOGLOBIN 28.3 pg (29.0-33.0); MEAN CORPUSCULAR HGB CONC 32.9 g/dl (32.0-37.0); MEAN CORPUSCULAR VOLUME 86.2 fl (82.0-101.0); MEAN PLATELET VOLUME 10.7 fl (7.4-10.4); MONOCYTES % 6.8 % (0.0-11.0); NEUTROPHIL # 12.7 10^3/ul (1.6-7.5); NEUTROPHILS % 84.2 % (39.0-77.0); PLATELET COUNT 181 10^3/UL (140-415); RED BLOOD COUNT 4.34 10^6/ul (4.70-6.10); WHITE BLOOD COUNT 15.1 10^3/ul (4.8-10.8)
[2017-08-04 07:49] LABS: CALCIUM 8.7 mg/dl (8.4-10.2); CREATININE 0.84 mg/dl (0.61-1.24); POTASSIUM 3.7 mmol/L (3.5-5.1)
[2017-08-04 07:58] LABS: TROPONIN-I 0.016 ng/ml (0.00-0.12)
[2017-08-04 08:16] LABS: CK-MB 1.3 ng/ml (0.0-2.4)
--- NOTE | 2017-08-04 09:45 | PN ---
Date/Time of Note Date/Time of Note DATE: 08/04/17 TIME: 09:26 Assessment/Plan Lines/Catheters IV Catheter Type (from [facility]): Peripheral IV [place] in Place (from [facility]): No Assessment/Plan Chief Complaint/Hosp Course 1. Left buttock cellulitis possible abscess. Incision and drainage was recommended however patient is refusing at this time and wants an imaging to confirm it. CT pending -IV antibiotics -IV fluids -Offloading -Warm compress 2. Significant leukocytosis with sepsis possibly secondary above possibly other : improved, afebrile -As above 3. Morbid obese -Encourage diet optimization -Encourage exercise 4. CVA history -Medical optimization 5. Hypertension -Diet and medication optimization -Weight loss recommended 6. Hypokalemia: normalized -monitor 7. Elevated ck of unknown etiology -Imaging -Workup per medical team 8. Lactic acidosis secondary to above: normalized 9. Prediabetes: hga1c:6.2 -optimize sugar control Thank you. Patient seen and examined in collaboration with Dr. Luis Lebron. Problems: Subjective 24 Hr Interval Summary Feels ok. Reports fatigue. Left buttock without pain, min tenderness. No excessive wound drainage. No fevers, chills, cp, sob, palpitations, n/v/d/ dysuria or tele changes. Pending buttock imaging to confirm abscess. Exam/Review of Systems Vital Signs Vitals Vital Signs Date Time Temp Pulse Resp B/P Pulse Ox O2 Delivery O2 Flow Rate FiO2 08/04/17 08:13 70 08/04/17 07:47 97.7 16 137/71 98 08/03/17 20:00 Nasal Cannula 2.0 08/03/17 00:10 28 Intake and Output 08/03/17 08/03/17 08/04/17 14:59 22:59 06:59 Intake Total 700 ml 650 ml Output Total 800 ml 550 ml Balance -100 ml 100 ml Exam Free Text/Dictation Constitutional: alert, obese No distress Psych: anxiety Head: atraumatic, normocephalic Eyes: EOMI, PERRL, nl conjunctiva, No icteric ENMT: mucosa pink and moist, nl external ears & nose Neck: non-tender, supple Respiratory: normal air movement, No congested cough, No labored breathing Cardiovascular: edema, regular rate and rhythm, sr Gastrointestinal: non-tender, soft, No rebound or guarding Musculoskeletal: nl extremities to inspection, No joint tenderness Extremities: normal pulses, No calf tenderness, No cyanosis Neurological: nl mental status, nl speech, nl strength Skin: rash or lesions (left buttock induration, tenderness, min erythema, no open draining areas) No diaphoresis Lymph: nl lymph nodes, nontender Results Result Diagram: 08/04/17 0637 08/04/17 0637 AB GONCALVES NP Aug 04, 2017 09:36
--- NOTE | 2017-08-04 10:26 | PN ---
Date/Time of Note Date/Time of Note DATE: 08/04/17 TIME: 10:26 Assessment/Plan VTE Prophylaxis VTE Prophylaxis Intervention: heparin Lines/Catheters IV Catheter Type (from Nrs): Peripheral IV Urinary Cath still in place: No Assessment/Plan Assessment/Plan 1. Sepsis secondary to perianal abscess- improving - ID on board and appreciate recommendations - Will continue current treatment - WBC trending downward 2. Left buttocks cellulitis with possible abscess - Surgery on board and recommendations appreciated - Patient is not willing to undergo I&D at this time and would like to continue present course - CT abd/pelvis ordered for further evaluation and pending - Warm compresses recommended per surgery 3. Rhabdomyolysis- improving - CK trending downward 4. Prediabetes - A1c 6.2 - Encourage proper diet and improve exercise regime 5. h/o CVA - stable 6. HTN - will continue to monitor and adjust medication as needed 7. Obesity - encourage improvement of diet and exercise Subjective 24 Hr Interval Summary Free Text/Dictation patient seen and examined this am. Denies any issues but does admit to being scared but unsure why. Does c/o slight discomfort in his rectum area secondary to ulcer. No acute overnight events and no new complaints. Exam/Review of Systems Vital Signs Vitals Vital Signs Date Time Temp Pulse Resp B/P Pulse Ox O2 Delivery O2 Flow Rate FiO2 08/04/17 08:13 70 08/04/17 07:47 97.7 16 137/71 98 08/03/17 20:00 Nasal Cannula 2.0 08/03/17 00:10 28 Intake and Output 08/03/17 08/03/17 08/04/17 15:00 23:00 07:00 Intake Total 700 ml 650 ml Output Total 800 ml 550 ml Balance -100 ml 100 ml Exam General: NAD, cooperative, awake and alert CVS: regular rate and rhythm, no murmurs Lungs: CTA b/l. no wheezes or crackles Abd: soft, NT, ND. no rebound or guarding Ext: no cyanosis, edema, or clubbing Skin: left buttocks induration, no drainage or discharge, tenderness to palpation, minimal erythema Results Result Diagram: 08/04/17 0637 08/04/17 0637 Results 24 hrs Laboratory Tests Test 08/04/17 06:37 White Blood Count 15.1 #H Red Blood Count 4.34 L Hemoglobin 12.3 L Hematocrit 37.4 L Mean Corpuscular Volume 86.2 Mean Corpuscular Hemoglobin 28.3 L Mean Corpuscular Hemoglobin Concent 32.9 Red Cell Distribution Width 14.0 Platelet Count 181 Mean Platelet Volume 10.7 H Neutrophils % 84.2 H Lymphocytes % 6.6 L Monocytes % 6.8 Eosinophils % 1.7 Basophils % 0.2 Nucleated Red Blood Cells % 0.0 Neutrophils # 12.7 H Lymphocytes # 1.0 Monocytes # 1.0 H Eosinophils # 0.3 Basophils # 0.0 Nucleated Red Blood Cells # 0.0 Erythrocyte Sedimentation Rate 81 H Sodium Level 141 Potassium Level 3.7 Chloride Level 107 Carbon Dioxide Level 27 Anion Gap 11 Blood Urea Nitrogen 19 Creatinine 0.84 Glucose Level 147 Calcium Level 8.7 Creatine Kinase 712 H Creatine Kinase Index 0.2 Creatinine Kinase MB (Mass) 1.30 Troponin I 0.016 C-Reactive Protein 26.7 H Medications Medications Current Medications Cefepime HCl (Maxipime 1gm/50 ml (Pmx)) 50 ml @ 100 mls/hr Q12 IVPB Last administered on 08/03/17 21:04; Admin Dose 100 MLS/HR; Start 08/03/17 at 09:00 Alprazolam (Xanax) 1 mg Q12H PRN PO ANXIETY; Start 08/03/17 at 02:00 Meloxicam (Mobic) 15 mg DAILY PO Last administered on 08/03/17 08:36; Admin Dose 15 MG; Start 08/03/17 at 09:00 Atorvastatin Calcium (Lipitor) 20 mg HS PO Last administered on 08/03/17 21:03 ; Admin Dose 20 MG; Start 08/03/17 at 21:00 Aspirin (Aspirin) 81 mg DAILY PO Last administered on 08/03/17 08:36; Admin Dose 81 MG; Start 08/03/17 at 09:00 Ondansetron HCl (Zofran Inj) 4 mg Q6H PRN IV NAUSEA AND/OR VOMITING; Start at 02:00 Heparin Sodium (Porcine) (Heparin (5000 Units/0.5 ml)) 5,000 unit BID SC Last administered on 08/03/17 21:14; Admin Dose 5,000 UNIT; Start 08/03/17 at 09:00 Acetaminophen (Tylenol Tab) 650 mg Q6H PRN PO PAIN AND OR ELEVATED TEMP Last administered on 08/03/17 15:57; Admin Dose 650 MG; Start 08/03/17 at 02:00 Pantoprazole 40 mg 40 mg DAILY@06 PO Last administered on 08/04/17 05:41; Admin Dose 40 MG; Start 08/03/17 at 06:00 Vancomycin HCl (Vancocin) 250 ml @ 125 mls/hr Q12H IVPB Last administered on 03:46; Admin Dose 125 MLS/HR; Start 08/03/17 at 04:00 Miscellaneous Information (Pending [facility]yl Order For Wound Care) This patient knight... PRN PRN XX WOUND CARE; Start 08/03/17 at 06:30 Miscellaneous Information (*Rx Drug Level Order Reminder*) VANCOMYCIN TROUGH AT 1500 ONCE ONCE XX ; Start 08/04/17 at 15:00; Stop 08/04/17 at 15:01 Amlodipine Besylate (Norvasc) 5 mg DAILY PO ; Start 08/04/17 at 09:00 Carvedilol (Coreg) 25 mg BID PO Last administered on 08/03/17 21:04; Admin Dose 25 MG; Start 08/03/17 at 21:00 Lisinopril (Zestril) 40 mg DAILY PO ; Start 08/04/17 at 09:00 KEE DAVIS MD Aug 04, 2017 10:26
[2017-08-04] MEDS: MELOXICAM 15 MG TAB PO SCH (11:07)
[2017-08-04] MEDS: ACETAMINOPHEN 325 MG TAB PO PRN (11:07)
[2017-08-04] MEDS: ASPIRIN 81 MG TAB PO SCH (11:08)
[2017-08-04] MEDS: AMLODIPINE 5 MG TAB PO SCH (11:09)
[2017-08-04] MEDS: LISINOPRIL 20 MG TAB PO SCH (11:10)
[2017-08-04] MEDS: HEPARIN 5,000 UNIT/0.5 ML VIAL SC SCH ×2 (11:20→21:32)
[2017-08-04] MEDS: CEFEPIME 1GM/50 ML (PMX) 50 ML IVPB SCH ×2 (11:29→21:30)
[2017-08-04] MEDS ORDERED: SOD CHLORIDE 0.9% 100 ML ONE (15:02)
[2017-08-04] MEDS ORDERED: IOHEXOL 300MG/ML 150 ML BTL ONE (15:02)
--- NOTE | 2017-08-04 18:37 | PN ---
DATE: 08/04/2017 SUBJECTIVE DATA: No acute changes. Patient is awake, looks comfortable. He is afebrile. LABORATORY DATA: WBC today 15.1, platelets 181, neutrophils 84.2, no bands, ESR 81. BUN 19, creatinine 0.84. MICROBIOLOGY: Blood and urine culture remain negative. ANTIMICROBIALS: Cefepime, vancomycin. PHYSICAL EXAMINATION: GENERAL: Obese, well-developed, elderly white man, who is awake, in no distress. HEENT: Head atraumatic, normocephalic. Sclerae anicteric. Buccal mucosa pink, dry. NECK: Supple. CHEST: Rise symmetrical. Breath sounds clear. HEART: S1, S2. ABDOMEN: Soft, bowel sounds present. EXTREMITIES: No cyanosis. ASSESSMENT: 1. Resolving sepsis with fevers, leukocytosis, lactic acidosis, and tachycardia on admission. 2. Left buttock cellulitis, possible abscess. 3. Obesity. 4. Hypertension. 5. History of cerebrovascular accident. PLAN: The patient remains stable. He is being seen by surgical team. He is on appropriate antibiotics. Continue warm compresses to left buttock. Dictated By: Magdalena Nino NP /skylar/bjc /Document#: [id number]
--- NOTE | 2017-08-04 19:32 | RADRPT ---
PROCEDURE: CT abdomen and pelvis with contrast. CLINICAL INDICATION: Left buttock induration. Rule out abscess. TECHNIQUE: CT of the abdomen/pelvis was performed utilizing axial images with reconstructions in s agittal and coronal planes following the intravenous administration of 100 cc Omnipaque-300 contrast . The administered radiation dose is CTDI 20.99 mGy, DLP 1435.18 mGy-cm. One or more of the followin g dose reduction techniques were used: Automated exposure control, Adjustment of the mA and/or kV ac cording to patient size, or Use of iterative reconstruction technique. COMPARISON: CT abdomen/pelvis without contrast 07/22/2015 FINDINGS: Lung bases: The lung bases demonstrate mild bilateral posterior dependent atelectasis and mild scatt ered patchy ground-glass opacities that may represent mild pulmonary edema. The visualized heart is normal size without pericardial effusion. There are coronary artery calcifications. CT ABDOMEN: Gastrointestinal tract: There is no bowel obstruction. There is scattered sigmoid colon diverticulo sis without evidence of acute diverticulitis. No abnormal colonic wall thickening is identified.Ther e is no pneumoperitoneum. A normal-appearing appendix is seen in the right lower quadrant. Liver: The liver is normal in size without focal lesion. Mild peripheral ill-defined low attenuation in the right hepatic lobe is suggestive of transient perfusion phenomenon. There is no intrahepatic ductal dilatation. The main portal veins are patent. Gallbladder: The gallbladder contains gallstones. There is no gallbladder wall thickening or pericho lecystic fluid. Pancreas: A few punctate calcifications are seen in the distal body and tail of the pancreas, nonspe cific and possibly related to prior inflammation. The pancreas is otherwise grossly unremarkable. Spleen: The spleen is normal in size without focal lesion. Kidneys: The kidneys are normal in size and contour. An exophytic left interpolar renal cyst measuri ng 2.3 cm is grossly stable in size. A left posterior interpolar renal cyst measuring 2.1 cm x 1.5 c m is more conspicuous on this contrast-enhanced study. A 6 mm right upper pole low attenuation lesio n, a 6 mm right interpolar low attenuation and a 1 cm right interpolar low attenuation lesion are al l too small to further characterize and not clearly seen on the prior unenhanced study. No renal dalia culi are identified.There is no evidence of hydronephrosis. Adrenal glands: The bilateral adrenal glands are unremarkable. Retroperitoneum: There is no retroperitoneal adenopathy.The aorta is normal in caliber. There are sc attered aortic atherosclerotic calcifications. CT PELVIS: Pelvic organs: The prostate gland is mildly heterogeneous and enlarged, measuring 5.1 cm in transver se dimension. A few punctate calcifications are seen within the prostate gland. The seminal vesicles are grossly unremarkable. Bladder: The urinary bladder is unenhanced and under distended, and therefore suboptimally evaluated , but grossly unremarkable. There is no pelvic free fluid.No pelvic adenopathy is identified. Osseous structures: No destructive lytic or blastic osseous lesion is identified. There are degenera tive changes of the visualized spine. Soft tissues: There are phlegmonous changes extending from the left anal region and posteriorly dario ng the left gluteal fold. A thin region of ill-defined low attenuation measuring 9 mm x 4 mm (series 3, image 186) is noted and may represent very early fluid organization. No peripheral enhancing wal ls are seen to suggest a mature abscess. A fat containing periumbilical hernia is redemonstrated. IMPRESSION: 1. Phlegmonous changes extending from the left anal region and posteriorly along the left gluteal fo ld. A thin region of ill-defined low attenuation measuring 9 mm x 4 mm (series 3, image 186) is note d and may represent very early fluid organization. No enhancing barrera are seen to suggest a mature a bscess. 2. Cholelithiasis without evidence of acute cholecystitis. 3. Sigmoid diverticulosis without evidence of acute diverticulitis. 4. Bilateral renal cysts and other sub centimeter low attenuation lesions too small to definitively characterize, as described above. 5. Mild bilateral posterior dependent atelectasis and mild scattered ground-glass opacities which ma y represent a mild pulmonary edema. 6. Fat containing periumbilical hernia. RPTAT: AA Physician Diane Date Time Electronically viewed and signed by Physician Diane on 08/04/2017 19:32 BINU/
[2017-08-04] MEDS: ATORVASTATIN 20 MG TAB PO SCH (21:30)
[2017-08-05] VITALS (12 sets, daily range): BP systolic 127–139; BP diastolic 63–91; PULSE 63–69; RESP 17–22
[2017-08-05] MEDS: VANCOMYCIN 1 GM in NS 250 ML IVPB SCH (03:17)
[2017-08-05] MEDS: PANTOPRAZOLE (EC) 40 MG TAB PO SCH (05:36)
[2017-08-05] MEDS: ASPIRIN 81 MG TAB PO SCH (08:17)
[2017-08-05] MEDS: CEFEPIME 1GM/50 ML (PMX) 50 ML IVPB SCH ×2 (08:17→21:56)
[2017-08-05] MEDS: LISINOPRIL 20 MG TAB PO SCH (08:18)
[2017-08-05] MEDS: MELOXICAM 15 MG TAB PO SCH (08:18)
[2017-08-05] MEDS: AMLODIPINE 5 MG TAB PO SCH (08:19)
[2017-08-05] MEDS: HEPARIN 5,000 UNIT/0.5 ML VIAL SC SCH ×2 (08:22→21:57)
[2017-08-05 08:23] LABS: BASOPHILS % 0.3 % (0.0-2.0); EOSINOPHILS # 0.3 10^3/ul (0.0-0.5); EOSINOPHILS % 2.8 % (0.0-7.0); HEMATOCRIT 35.1 % (42.0-52.0); HEMOGLOBIN 11.7 g/dl (14.0-18.0); LYMPHOCYTES # 1.1 10^3/ul (0.8-2.9); LYMPHOCYTES % 11.3 % (15.0-51.0); MEAN CORPUSCULAR HEMOGLOBIN 28.5 pg (29.0-33.0); MEAN CORPUSCULAR HGB CONC 33.3 g/dl (32.0-37.0); MEAN CORPUSCULAR VOLUME 85.4 fl (82.0-101.0); MEAN PLATELET VOLUME 10.8 fl (7.4-10.4); MONOCYTE # 0.8 10^3/ul (0.3-0.9); MONOCYTES % 7.9 % (0.0-11.0); NEUTROPHIL # 7.8 10^3/ul (1.6-7.5); NEUTROPHILS % 77.1 % (39.0-77.0); PLATELET COUNT 198 10^3/UL (140-415); RED BLOOD COUNT 4.11 10^6/ul (4.70-6.10); RED CELL DISTRIBUTION WIDTH 13.9 % (11.5-14.5); WHITE BLOOD COUNT 10.1 10^3/ul (4.8-10.8)
[2017-08-05 08:42] LABS: CALCIUM 8.7 mg/dl (8.4-10.2); CREATININE 0.63 mg/dl (0.61-1.24); MAGNESIUM 1.9 mg/dl (1.7-2.5); PHOSPHORUS 2.6 mg/dl (2.5-4.9); POTASSIUM 3.1 mmol/L (3.5-5.1)
--- NOTE | 2017-08-05 13:24 | PN ---
Date/Time of Note Date/Time of Note DATE: 08/05/17 TIME: 13:21 Assessment/Plan VTE Prophylaxis VTE Prophylaxis Intervention: heparin Lines/Catheters IV Catheter Type (from Nrs): Peripheral IV Urinary Cath still in place: No Assessment/Plan Assessment/Plan 1. Sepsis secondary to perianal abscess- improving - ID on board and appreciate recommendations - Will continue current treatment - WBC normalizing and remains afebrile 2. Left buttocks cellulitis with possible abscess - Surgery on board and recommendations appreciated - Patient is not willing to undergo I&D at this time and would like to continue present course - CT abd/pelvis shows phlegmonous changes, fluid 9mm x 4mm but no evidence of early abscess - Warm compresses recommended per surgery 3. Rhabdomyolysis- improving - CK trending downward 4. Prediabetes - A1c 6.2 - Encourage proper diet and improve exercise regime 5. h/o CVA - stable 6. HTN - will continue to monitor and adjust medication as needed 7. Obesity - encourage improvement of diet and exercise Subjective 24 Hr Interval Summary Free Text/Dictation Patient states feeling about the same today and still has discomfort in rectal area. Denies any new complaints and no acute overnight events. Still very nervous and afraid since away from family and does not like being in the hospital. Exam/Review of Systems Vital Signs Vitals Vital Signs Date Time Temp Pulse Resp B/P Pulse Ox O2 Delivery O2 Flow Rate FiO2 08/05/17 12:00 67 08/05/17 11:18 98.7 17 128/63 94 08/05/17 02:32 2.0 28 08/03/17 20:00 Nasal Cannula Intake and Output 08/04/17 08/04/17 08/05/17 15:00 23:00 07:00 Intake Total 990 ml 1000 ml Output Total 575 ml 600 ml Balance 415 ml 400 ml Exam General: NAD, cooperative, awake and alert CVS: regular rate and rhythm, no murmurs Lungs: CTA b/l. no wheezes or crackles Abd: soft, NT, ND. no rebound or guarding Ext: no cyanosis, edema, or clubbing Skin: left buttocks induration, no drainage or discharge, tenderness to palpation Results Result Diagram: 08/05/17 0737 08/05/17 0737 Results 24 hrs Laboratory Tests Test 08/04/17 14:44 08/05/17 07:37 Vancomycin Level Trough 10.9 White Blood Count 10.1 # Red Blood Count 4.11 L Hemoglobin 11.7 L Hematocrit 35.1 L Mean Corpuscular Volume 85.4 Mean Corpuscular Hemoglobin 28.5 L Mean Corpuscular Hemoglobin Concent 33.3 Red Cell Distribution Width 13.9 Platelet Count 198 Mean Platelet Volume 10.8 H Neutrophils % 77.1 H Lymphocytes % 11.3 L Monocytes % 7.9 Eosinophils % 2.8 Basophils % 0.3 Nucleated Red Blood Cells % 0.0 Neutrophils # 7.8 H Lymphocytes # 1.1 Monocytes # 0.8 Eosinophils # 0.3 Basophils # 0.0 Nucleated Red Blood Cells # 0.0 Sodium Level 138 Potassium Level 3.1 L Chloride Level 103 Carbon Dioxide Level 31 Anion Gap 7 L Blood Urea Nitrogen 11 Creatinine 0.63 Glucose Level 121 Calcium Level 8.7 Phosphorus Level 2.6 Magnesium Level 1.9 Albumin 3.0 L Medications Medications Current Medications Cefepime HCl (Maxipime 1gm/50 ml (Pmx)) 50 ml @ 100 mls/hr Q12 IVPB Last administered on 08/05/17 08:17; Admin Dose 100 MLS/HR; Start 08/03/17 at 09:00 Alprazolam (Xanax) 1 mg Q12H PRN PO ANXIETY; Start 08/03/17 at 02:00 Meloxicam (Mobic) 15 mg DAILY PO Last administered on 08/05/17 08:18; Admin Dose 15 MG; Start 08/03/17 at 09:00 Atorvastatin Calcium (Lipitor) 20 mg HS PO Last administered on 08/04/17 21:30 ; Admin Dose 20 MG; Start 08/03/17 at 21:00 Aspirin (Aspirin) 81 mg DAILY PO Last administered on 08/05/17 08:17; Admin Dose 81 MG; Start 08/03/17 at 09:00 Ondansetron HCl (Zofran Inj) 4 mg Q6H PRN IV NAUSEA AND/OR VOMITING; Start at 02:00 Heparin Sodium (Porcine) (Heparin (5000 Units/0.5 ml)) 5,000 unit BID SC Last administered on 08/05/17 08:22; Admin Dose 5,000 UNIT; Start 08/03/17 at 09:00 Acetaminophen (Tylenol Tab) 650 mg Q6H PRN PO PAIN AND OR ELEVATED TEMP Last administered on 08/04/17 11:07; Admin Dose 650 MG; Start 08/03/17 at 02:00 Pantoprazole (Protonix Tab) 40 mg DAILY@06 PO Last administered on 08/05/17 05 :36; Admin Dose 40 MG; Start 08/03/17 at 06:00 Miscellaneous Information [facility] This patient knight... PRN PRN XX WOUND CARE; Start 08/03/17 at 06:30 Amlodipine Besylate (Norvasc) 5 mg DAILY PO Last administered on 08/05/17 08: 19; Admin Dose 5 MG; Start 08/04/17 at 09:00 Carvedilol (Coreg) 25 mg BID PO Last administered on 08/05/17 08:19; Admin Dose 25 MG; Start 08/03/17 at 21:00 Lisinopril 40 mg 40 mg DAILY PO Last administered on 08/05/17 08:18; Admin Dose 40 MG; Start 08/04/17 at 09:00 Vancomycin HCl/ Sodium Chloride (Vancocin/NS) 250 ml @ 83.333 mls/ hr Q12H IVPB ; Start 08/05/17 at 16:00 KEE DAVIS MD Aug 05, 2017 13:24
[2017-08-05] MEDS: ACETAMINOPHEN 325 MG TAB PO PRN (14:39)
[2017-08-05] MEDS: POTASSIUM CHLORIDE (SR) 20 MEQ TAB PO SCH ×2 (14:40→21:56)
[2017-08-05] MEDS: VANCOMYCIN 1.25 GM in SOD CHLORIDE 0.9% 250 ML IVPB SCH (16:13)
--- NOTE | 2017-08-05 18:32 | PN ---
DATE: 08/05/2017 SUBJECTIVE DATA: No events overnight. The patient is sleeping, lying comfortably in bed. No fevers. LABORATORY AND DIAGNOSTIC DATA: WBC today 10.1, neutrophils 77.1. BUN 11, creatinine 0.63. Microbiology cultures been negative. ANTIMICROBIALS: 1. IV vancomycin. 2. Cefepime. PHYSICAL EXAMINATION: GENERAL: This is obese, well developed, elderly man, who is in no distress. HEENT: Head atraumatic, normocephalic. Sclerae anicteric. NECK: Supple. CHEST: Rise symmetrical. Breath sounds clear. HEART: S1, S2. ABDOMEN: Soft, bowel sounds present. ASSESSMENT: 1. Status post sepsis with fevers, leukocytosis, lactic acidosis, and tachycardia. 2. Left buttock cellulitis and possible abscess. 3. Hypertension. 4. Obesity. 5. History of cerebrovascular accident. PLAN: The patient remains stable. WBC tracing down. Continue present care. Antibiotics. Follow surgical recommendations. Dictated By: Magdalena Nino NP /skylar/stormy /Document#: [id number]
[2017-08-05] MEDS: ATORVASTATIN 20 MG TAB PO SCH (21:50)
--- NOTE | 2017-08-05 23:40 | PN ---
Date/Time of Note Date/Time of Note DATE: 08/05/17 TIME: 23:22 Assessment/Plan Lines/Catheters IV Catheter Type (from [facility]): Peripheral IV [place] in Place (from [facility]): No Assessment/Plan Chief Complaint/Hosp Course 1. Left buttock cellulitis possible abscess. CT noted without definite abscess -IV antibiotics -IV fluids -Offloading -Warm compress 2. Significant leukocytosis with sepsis possibly secondary above possibly other : normalized, afebrile -As above 3. Morbid obese -Encourage diet optimization -Encourage exercise 4. CVA history -Medical optimization 5. Hypertension -Diet and medication optimization -Weight loss recommended 6. Hypokalemia: normalized -monitor 7. Elevated ck of unknown etiology-trending down 8. Cholelithiasis without cholecystitis: no abd pain, lft's normal -diet and lifestyle optimiation -monitor 9. Prediabetes: hga1c:6.2 -optimize sugar control -weight management 10. Diverticulosis: -gi followup -diet modification and careful monitoring 11. Bilateral renal cyst: asymptomatic; nl kidney function -renal follow up outpatient 12. Bilateral lung atelectasis possible pulmonary edema: comfortable on room air -ambulate -IS -?diuresis 13. Fat containing umbilical hernia: no pain from hernia -careful monitoring -poss hernia repair Thank you. Patient seen and examined in collaboration with Dr. Luis Lebron. Problems: Subjective 24 Hr Interval Summary Sleepy but arousable. Feels ok. Discomfort from left buttock/anal area but no acute pain or change in pain. No drainage from left buttock. No fevers, chills, sob, congested cough, knight, dizziness, chills, myalgias, new weakness. Exam/Review of Systems Vital Signs Vitals Vital Signs Date Time Temp Pulse Resp B/P Pulse Ox O2 Delivery O2 Flow Rate FiO2 08/05/17 20:08 68 08/05/17 20:01 98.0 19 139/91 97 08/05/17 02:32 2.0 28 08/03/17 20:00 Nasal Cannula Intake and Output 08/04/17 08/04/17 08/05/17 15:00 23:00 07:00 Intake Total 990 ml 1000 ml Output Total 575 ml 600 ml Balance 415 ml 400 ml Exam Free Text/Dictation Constitutional: alert, obese, somnolent No distress Psych: anxiety Head: atraumatic, normocephalic Eyes: EOMI, PERRL, nl conjunctiva, No icteric ENMT: mucosa pink and moist, nl external ears & nose Neck: non-tender, supple Respiratory: normal air movement, No congested cough, No labored breathing Cardiovascular: edema, regular rate and rhythm, sr Gastrointestinal: non-tender, soft, No rebound or guarding Musculoskeletal: nl extremities to inspection, No joint tenderness Extremities: normal pulses, No calf tenderness, No cyanosis Neurological: nl mental status, nl speech, nl strength Skin: rash or lesions (left buttock induration, tenderness, min erythema, no open draining areas, dry skin) No diaphoresis Lymph: nl lymph nodes, nontender Results Result Diagram: 08/05/17 0737 08/05/17 0737 AB GONCALVES NP Aug 05, 2017 23:40
[2017-08-06] VITALS (12 sets, daily range): BP systolic 111–164; BP diastolic 60–83; PULSE 60–73; RESP 18–19
[2017-08-06] MEDS: VANCOMYCIN 1.25 GM in SOD CHLORIDE 0.9% 250 ML IVPB SCH ×2 (04:00→16:48)
[2017-08-06] MEDS: PANTOPRAZOLE (EC) 40 MG TAB PO SCH (06:00)
[2017-08-06 08:18] LABS: BASOPHILS % 0.3 % (0.0-2.0); EOSINOPHILS # 0.3 10^3/ul (0.0-0.5); EOSINOPHILS % 2.3 % (0.0-7.0); HEMATOCRIT 37.9 % (42.0-52.0); HEMOGLOBIN 12.5 g/dl (14.0-18.0); LYMPHOCYTES # 1.3 10^3/ul (0.8-2.9); LYMPHOCYTES % 11.3 % (15.0-51.0); MEAN PLATELET VOLUME 10.3 fl (7.4-10.4); MONOCYTE # 0.9 10^3/ul (0.3-0.9); MONOCYTES % 7.7 % (0.0-11.0); NEUTROPHIL # 8.6 10^3/ul (1.6-7.5); NEUTROPHILS % 77.7 % (39.0-77.0); PLATELET COUNT 225 10^3/UL (140-415); RED BLOOD COUNT 4.46 10^6/ul (4.70-6.10); WHITE BLOOD COUNT 11.1 10^3/ul (4.8-10.8)
[2017-08-06 08:42] LABS: ALBUMIN 3.5 g/dl (3.3-4.9); CALCIUM 8.7 mg/dl (8.4-10.2); CREATININE 0.61 mg/dl (0.61-1.24); MAGNESIUM 1.9 mg/dl (1.7-2.5); PHOSPHORUS 2.8 mg/dl (2.5-4.9); POTASSIUM 3.9 mmol/L (3.5-5.1)
--- NOTE | 2017-08-06 09:04 | PN ---
Date/Time of Note Date/Time of Note DATE: 08/06/17 TIME: 09:04 Assessment/Plan VTE Prophylaxis VTE Prophylaxis Intervention: heparin Lines/Catheters IV Catheter Type (from Nrs): Peripheral IV Urinary Cath still in place: No Assessment/Plan Assessment/Plan 1. Sepsis secondary to perianal abscess- improving - ID on board and appreciate recommendations - Will continue current treatment - WBC improving and remains afebrile 2. Left buttocks cellulitis with possible abscess - Surgery on board and recommendations appreciated - Continue warm compresses, antibiotics and fluids - CT abd/pelvis shows phlegmonous changes, fluid 9mm x 4mm but no evidence of early abscess 3. Rhabdomyolysis- resolving 4. Prediabetes - A1c 6.2 - Encourage proper diet and improve exercise regime 5. h/o CVA - stable 6. HTN - will continue to monitor and adjust medication as needed 7. Obesity - encourage improvement of diet and exercise Subjective 24 Hr Interval Summary Free Text/Dictation Patient states still experiencing same discomfort in buttocks area but states feeling less nervous. No acute overnight events or new complaints. Exam/Review of Systems Vital Signs Vitals Vital Signs Date Time Temp Pulse Resp B/P Pulse Ox O2 Delivery O2 Flow Rate FiO2 08/06/17 08:27 72 08/06/17 07:43 97.8 18 158/83 92 08/05/17 02:32 2.0 28 08/03/17 20:00 Nasal Cannula Intake and Output 08/05/17 08/05/17 08/06/17 15:00 23:00 07:00 Intake Total 50 ml 1000 ml 1150 ml Output Total 1100 ml 850 ml Balance 50 ml -100 ml 300 ml Exam General: NAD, cooperative, awake and alert CVS: regular rate and rhythm, no murmurs Lungs: CTA b/l. no wheezes or crackles Abd: soft, NT, ND. no rebound or guarding Ext: no cyanosis, edema, or clubbing Skin: left buttocks induration, no drainage or discharge, mild tenderness to palpation Results Result Diagram: 08/06/17 0741 08/06/17 0741 Results 24 hrs Laboratory Tests Test 08/06/17 07:41 White Blood Count 11.1 H Red Blood Count 4.46 L Hemoglobin 12.5 L Hematocrit 37.9 L Mean Corpuscular Volume 85.0 Mean Corpuscular Hemoglobin 28.0 L Mean Corpuscular Hemoglobin Concent 33.0 Red Cell Distribution Width 14.0 Platelet Count 225 Mean Platelet Volume 10.3 Neutrophils % 77.7 H Lymphocytes % 11.3 L Monocytes % 7.7 Eosinophils % 2.3 Basophils % 0.3 Nucleated Red Blood Cells % 0.0 Neutrophils # 8.6 H Lymphocytes # 1.3 Monocytes # 0.9 Eosinophils # 0.3 Basophils # 0.0 Nucleated Red Blood Cells # 0.0 Sodium Level 139 Potassium Level 3.9 Chloride Level 102 Carbon Dioxide Level 30 Anion Gap 11 Blood Urea Nitrogen 13 Creatinine 0.61 Glucose Level 152 Calcium Level 8.7 Phosphorus Level 2.8 Magnesium Level 1.9 Albumin 3.5 Medications Medications Current Medications Cefepime HCl (Maxipime 1gm/50 ml (Pmx)) 50 ml @ 100 mls/hr Q12 IVPB Last administered on 08/05/17 21:56; Admin Dose 100 MLS/HR; Start 08/03/17 at 09:00 Alprazolam (Xanax) 1 mg Q12H PRN PO ANXIETY; Start 08/03/17 at 02:00 Meloxicam (Mobic) 15 mg DAILY PO Last administered on 08/05/17 08:18; Admin Dose 15 MG; Start 08/03/17 at 09:00 Atorvastatin Calcium (Lipitor) 20 mg HS PO Last administered on 08/05/17 21:50 ; Admin Dose 20 MG; Start 08/03/17 at 21:00 Aspirin (Aspirin) 81 mg DAILY PO Last administered on 08/05/17 08:17; Admin Dose 81 MG; Start 08/03/17 at 09:00 Ondansetron HCl (Zofran Inj) 4 mg Q6H PRN IV NAUSEA AND/OR VOMITING; Start at 02:00 Heparin Sodium (Porcine) (Heparin (5000 Units/0.5 ml)) 5,000 unit BID SC Last administered on 08/05/17 21:57; Admin Dose 5,000 UNIT; Start 08/03/17 at 09:00 Acetaminophen (Tylenol Tab) 650 mg Q6H PRN PO PAIN AND OR ELEVATED TEMP Last administered on 08/05/17 14:39; Admin Dose 650 MG; Start 08/03/17 at 02:00 Pantoprazole (Protonix Tab) 40 mg DAILY@06 PO Last administered on 08/05/17 05 :36; Admin Dose 40 MG; Start 08/03/17 at 06:00 Miscellaneous Information (Pending [facility] Order For Wound Care) This patient knight... PRN PRN XX WOUND CARE; Start 08/03/17 at 06:30 Amlodipine Besylate (Norvasc) 5 mg DAILY PO Last administered on 08/05/17 08: 19; Admin Dose 5 MG; Start 08/04/17 at 09:00 Carvedilol (Coreg) 25 mg BID PO Last administered on 08/05/17 21:51; Admin Dose 25 MG; Start 08/03/17 at 21:00 Lisinopril 40 mg 40 mg DAILY PO Last administered on 08/05/17 08:18; Admin Dose 40 MG; Start 08/04/17 at 09:00 Vancomycin HCl/ Sodium Chloride (Vancocin/NS) 250 ml @ 83.333 mls/ hr Q12H IVPB Last administered on 08/06/17 04:00; Admin Dose 83.333 MLS/HR; Start at 16:00 KEE DAVIS MD Aug 06, 2017 09:04
[2017-08-06] MEDS: LISINOPRIL 20 MG TAB PO SCH (09:24)
[2017-08-06] MEDS: MELOXICAM 15 MG TAB PO SCH (09:24)
[2017-08-06] MEDS: ASPIRIN 81 MG TAB PO SCH (09:24)
[2017-08-06] MEDS: AMLODIPINE 5 MG TAB PO SCH (09:25)
[2017-08-06] MEDS: CEFEPIME 1GM/50 ML (PMX) 50 ML IVPB SCH ×2 (09:25→20:50)
[2017-08-06] MEDS: HEPARIN 5,000 UNIT/0.5 ML VIAL SC SCH ×2 (09:32→21:02)
--- NOTE | 2017-08-06 15:06 | PN ---
DATE: 08/06/2017 SUBJECTIVE DATA: No acute changes. The patient is awake, looks comfortable. Denies pain. No fevers. LABORATORY AND DIAGNOSTIC DATA: WBC 11.1, platelets 225,000, neutrophils 77.7. BUN 13, creatinine 0.61. MICROBIOLOGY: All cultures negative. ANTIMICROBIALS: Patient remains on vancomycin and Cefepime. OBJECTIVE DATA: PHYSICAL EXAMINATION: GENERAL: This is a morbidly obese, elderly man in no distress. HEENT: Head atraumatic, normocephalic. Sclerae anicteric. Buccal mucosa pink. NECK: Supple. CHEST: Rise symmetrical. Breath sounds clear. HEART: S1, S2. ABDOMEN: Obese, soft, bowel sounds present. EXTREMITIES: Without cyanosis. ASSESSMENT: 1. Resolving sepsis. 2. Left buttock cellulitis, questionable abscess, surgery on case. 3. Morbid obesity. 4. Hypertension. 5. History of cerebrovascular accident. PLAN: The patient remains stable. Continue present care. For physical therapy. Follow Surgical recommendations. Dictated By: Magdalena Nino NP /skylar/alfredo /Document#: [id number]
--- NOTE | 2017-08-06 16:16 | PN ---
Date/Time of Note Date/Time of Note DATE: 08/06/17 TIME: 16:11 Assessment/Plan Lines/Catheters IV Catheter Type (from [facility]): Peripheral IV [place] in Place (from [facility]): No Assessment/Plan Chief Complaint/Hosp Course 1. Left buttock cellulitis possible abscess. CT noted without definite abscess however, today noted with mod drainage and area with slough; patient wants to continue compresses at this time. He may need debridement of area since now with slough -IV antibiotics -IV fluids -Offloading -Warm compress 2. Significant leukocytosis with sepsis possibly secondary above possibly other : afebrile but wbc up today -As above 3. Morbid obese -Encourage diet optimization -Encourage exercise 4. CVA history -Medical optimization 5. Hypertension -Diet and medication optimization -Weight loss recommended 6. Hypokalemia: normalized -monitor 7. Elevated ck of unknown etiology-trending down 8. Cholelithiasis without cholecystitis: no abd pain, lft's normal -diet and lifestyle optimiation -monitor 9. Prediabetes: hga1c:6.2 -optimize sugar control -weight management 10. Diverticulosis: -gi followup -diet modification and careful monitoring 11. Bilateral renal cyst: asymptomatic; nl kidney function -renal follow up outpatient 12. Bilateral lung atelectasis possible pulmonary edema: comfortable on room air -ambulate -IS -?diuresis 13. Fat containing umbilical hernia: no pain from hernia -careful monitoring -poss hernia repair Thank you. Patient seen and examined in collaboration with Dr. Luis Lebron. Problems: Subjective 24 Hr Interval Summary Left buttock with draining area. Mod amount of drainage from the wound. Left buttock with mod discomfort. WBC up today. No fevers, chills, sob, congested cough, cp, palpitaions, n/v/d/dsysuria. Exam/Review of Systems Vital Signs Vitals Vital Signs Date Time Temp Pulse Resp B/P Pulse Ox O2 Delivery O2 Flow Rate FiO2 08/06/17 15:23 98.0 65 18 128/65 97 08/05/17 02:32 2.0 28 08/03/17 20:00 Nasal Cannula Intake and Output 08/05/17 08/05/17 08/06/17 15:00 23:00 07:00 Intake Total 50 ml 1000 ml 1150 ml Output Total 1100 ml 850 ml Balance 50 ml -100 ml 300 ml Exam Free Text/Dictation Constitutional: alert, obese No distress Psych: anxiety Head: atraumatic, normocephalic Eyes: EOMI, PERRL, nl conjunctiva, No icteric ENMT: mucosa pink and moist, nl external ears & nose Neck: non-tender, supple Respiratory: normal air movement, No congested cough, No labored breathing Cardiovascular: edema, regular rate and rhythm, sr Gastrointestinal: non-tender, soft, No rebound or guarding Musculoskeletal: nl extremities to inspection, No joint tenderness Extremities: normal pulses, No calf tenderness, No cyanosis Neurological: nl mental status, nl speech, nl strength Skin: rash or lesions (left buttock draining area with some slough, tenderness , min erythema, induration improved) No diaphoresis Lymph: nl lymph nodes, nontender Results Result Diagram: 08/06/17 0741 08/06/17 0741 AB GONCALVES NP Aug 06, 2017 16:16
[2017-08-06] MEDS: ATORVASTATIN 20 MG TAB PO SCH (20:49)
[2017-08-07] VITALS (12 sets, daily range): BP systolic 125–161; BP diastolic 60–77; PULSE 54–73; RESP 16–20
[2017-08-07 04:06] LABS: ALBUMIN 3.2 g/dl (3.3-4.9); CREATININE 0.72 mg/dl (0.61-1.24); MAGNESIUM 1.9 mg/dl (1.7-2.5); PHOSPHORUS 4.2 mg/dl (2.5-4.9); POTASSIUM 3.5 mmol/L (3.5-5.1)
[2017-08-07 04:19] LABS: BASOPHILS % 0.3 % (0.0-2.0); EOSINOPHILS # 0.3 10^3/ul (0.0-0.5); EOSINOPHILS % 3.9 % (0.0-7.0); HEMATOCRIT 36.4 % (42.0-52.0); LYMPHOCYTES # 1.7 10^3/ul (0.8-2.9); LYMPHOCYTES % 19.2 % (15.0-51.0); MEAN CORPUSCULAR HEMOGLOBIN 28.1 pg (29.0-33.0); MEAN CORPUSCULAR VOLUME 85.2 fl (82.0-101.0); MEAN PLATELET VOLUME 10.6 fl (7.4-10.4); MONOCYTE # 0.9 10^3/ul (0.3-0.9); NEUTROPHIL # 5.7 10^3/ul (1.6-7.5); NEUTROPHILS % 65.9 % (39.0-77.0); PLATELET COUNT 222 10^3/UL (140-415); RED BLOOD COUNT 4.27 10^6/ul (4.70-6.10); RED CELL DISTRIBUTION WIDTH 14.2 % (11.5-14.5); WHITE BLOOD COUNT 8.7 10^3/ul (4.8-10.8)
[2017-08-07] MEDS ORDERED: VANCOMYCIN 1.5 GM in SOD CHLORIDE 0.9% 250 ML IVPB SCH (04:30)
[2017-08-07] MEDS: PANTOPRAZOLE (EC) 40 MG TAB PO SCH (05:57)
[2017-08-07] MEDS: HEPARIN 5,000 UNIT/0.5 ML VIAL SC SCH ×2 (09:06→20:45)
[2017-08-07] MEDS: MELOXICAM 15 MG TAB PO SCH (09:06)
[2017-08-07] MEDS: LISINOPRIL 20 MG TAB PO SCH (09:07)
[2017-08-07] MEDS: ASPIRIN 81 MG TAB PO SCH (09:07)
[2017-08-07] MEDS: AMLODIPINE 5 MG TAB PO SCH (09:08)
[2017-08-07] MEDS: CEFEPIME 1GM/50 ML (PMX) 50 ML IVPB SCH ×2 (09:08→20:29)
[2017-08-07] MEDS ORDERED: POTASSIUM CHLORIDE (SR) 20 MEQ TAB PO STA (10:23)
[2017-08-07] MEDS ORDERED: WALK1EAC23 MC (10:25)
--- NOTE | 2017-08-07 10:25 | PN ---
Date/Time of Note Date/Time of Note DATE: 08/07/17 TIME: 10:25 Assessment/Plan VTE Prophylaxis VTE Prophylaxis Intervention: SCD's Lines/Catheters IV Catheter Type (from Nrs): Peripheral IV Urinary Cath still in place: No Assessment/Plan Assessment/Plan 1. Sepsis secondary to perianal abscess- improving - ID on board and appreciate recommendations - Will continue current treatment - WBC improving and remains afebrile 2. Left buttocks cellulitis with new drainage - Surgery on board and recommendations appreciated - Plans for I&D today and send for cultures - Continue antibiotics and fluids - CT abd/pelvis shows phlegmonous changes, fluid 9mm x 4mm but no evidence of early abscess 3. Rhabdomyolysis- resolving 4. Prediabetes - A1c 6.2 - Encourage proper diet and improve exercise regime 5. h/o CVA - stable 6. HTN - will continue to monitor and adjust medication as needed 7. Obesity - encourage improvement of diet and exercise Subjective 24 Hr Interval Summary Free Text/Dictation Patient states still having discomfort in buttocks area but feeling less nervous about being in the hospital. Surgery plans to I&D area since starting to drain from site. No acute overnight events and no new complaints. Exam/Review of Systems Vital Signs Vitals Vital Signs Date Time Temp Pulse Resp B/P Pulse Ox O2 Delivery O2 Flow Rate FiO2 08/07/17 08:20 69 08/07/17 07:54 98.2 16 160/70 94 08/05/17 02:32 2.0 28 08/03/17 20:00 Nasal Cannula Intake and Output 08/06/17 08/06/17 08/07/17 14:59 22:59 06:59 Intake Total 920 ml 600 ml Output Total 1500 ml Balance -580 ml 600 ml Exam General: NAD, cooperative, awake and alert CVS: regular rate and rhythm, no murmurs Lungs: CTA b/l. no wheezes or crackles Abd: soft, NT, ND. no rebound or guarding Ext: no cyanosis, edema, or clubbing Skin: left buttocks draining with sloughing, mild tenderness Results Result Diagram: 08/07/17 0325 08/07/17 0325 Results 24 hrs Laboratory Tests Test 08/07/17 03:25 White Blood Count 8.7 # Red Blood Count 4.27 L Hemoglobin 12.0 L Hematocrit 36.4 L Mean Corpuscular Volume 85.2 Mean Corpuscular Hemoglobin 28.1 L Mean Corpuscular Hemoglobin Concent 33.0 Red Cell Distribution Width 14.2 Platelet Count 222 Mean Platelet Volume 10.6 H Neutrophils % 65.9 Lymphocytes % 19.2 Monocytes % 10.0 Eosinophils % 3.9 Basophils % 0.3 Nucleated Red Blood Cells % 0.0 Neutrophils # 5.7 Lymphocytes # 1.7 Monocytes # 0.9 Eosinophils # 0.3 Basophils # 0.0 Nucleated Red Blood Cells # 0.0 Sodium Level 142 Potassium Level 3.5 Chloride Level 102 Carbon Dioxide Level 33 H Anion Gap 11 Blood Urea Nitrogen 19 Creatinine 0.72 Glucose Level 176 Calcium Level 9.0 Phosphorus Level 4.2 Magnesium Level 1.9 Albumin 3.2 L Vancomycin Level Trough 7.9 L Medications Medications Current Medications Cefepime HCl (Maxipime 1gm/50 ml (Pmx)) 50 ml @ 100 mls/hr Q12 IVPB Last administered on 08/07/17 09:08; Admin Dose 100 MLS/HR; Start 08/03/17 at 09:00 Alprazolam (Xanax) 1 mg Q12H PRN PO ANXIETY; Start 08/03/17 at 02:00 Meloxicam (Mobic) 15 mg DAILY PO Last administered on 08/07/17 09:06; Admin Dose 15 MG; Start 08/03/17 at 09:00 Atorvastatin Calcium (Lipitor) 20 mg HS PO Last administered on 08/06/17 20:49 ; Admin Dose 20 MG; Start 08/03/17 at 21:00 Aspirin (Aspirin) 81 mg DAILY PO Last administered on 08/07/17 09:07; Admin Dose 81 MG; Start 08/03/17 at 09:00 Ondansetron HCl (Zofran Inj) 4 mg Q6H PRN IV NAUSEA AND/OR VOMITING; Start at 02:00 Heparin Sodium (Porcine) (Heparin (5000 Units/0.5 ml)) 5,000 unit BID SC Last administered on 08/07/17 09:06; Admin Dose 5,000 UNIT; Start 08/03/17 at 09:00 Acetaminophen (Tylenol Tab) 650 mg Q6H PRN PO PAIN AND OR ELEVATED TEMP Last administered on 08/05/17 14:39; Admin Dose 650 MG; Start 08/03/17 at 02:00 Pantoprazole (Protonix Tab) 40 mg DAILY@06 PO Last administered on 08/07/17 05 :57; Admin Dose 40 MG; Start 08/03/17 at 06:00 Miscellaneous Information (Pending [facility] Order For Wound Care) This patient knight... PRN PRN XX WOUND CARE; Start 08/03/17 at 06:30 Amlodipine Besylate (Norvasc) 5 mg DAILY PO Last administered on 08/07/17 09: 08; Admin Dose 5 MG; Start 08/04/17 at 09:00 Carvedilol (Coreg) 25 mg BID PO Last administered on 08/07/17 09:07; Admin Dose 25 MG; Start 08/03/17 at 21:00 Lisinopril 40 mg 40 mg DAILY PO Last administered on 08/07/17 09:07; Admin Dose 40 MG; Start 08/04/17 at 09:00 Vancomycin HCl/ Sodium Chloride (Vancocin/NS) 500 ml @ 125 mls/hr Q12H IVPB ; Start 08/07/17 at 17:00 KEE DAVIS MD Aug 07, 2017 10:25
[2017-08-07] MEDS ORDERED: LIDOCAINE 2%/EPI MPF (SDV) 20 ML VIAL INJ STA (11:57)
--- NOTE | 2017-08-07 13:38 | PN ---
Date/Time of Note Date/Time of Note DATE: 08/07/17 TIME: 13:31 Assessment/Plan Lines/Catheters IV Catheter Type (from [facility]): Peripheral IV [place] in Place (from [facility]): No Assessment/Plan Chief Complaint/Hosp Course 1. Left buttock cellulitis possible abscess. CT noted without definite abscess however, today noted with mod drainage and area with slough; patient wants to continue compresses at this time. S/p I &D -IV antibiotics -IV fluids -Offloading -Warm compress 2. Significant leukocytosis with sepsis possibly secondary above possibly other : afebrile but wbc up today -As above 3. Morbid obese -Encourage diet optimization -Encourage exercise 4. CVA history -Medical optimization 5. Hypertension -Diet and medication optimization -Weight loss recommended 6. Hypokalemia: normalized -monitor 7. Elevated ck of unknown etiology-trending down 8. Cholelithiasis without cholecystitis: no abd pain, lft's normal -diet and lifestyle optimiation -monitor 9. Prediabetes: hga1c:6.2 -optimize sugar control -weight management 10. Diverticulosis: -gi followup -diet modification and careful monitoring 11. Bilateral renal cyst: asymptomatic; nl kidney function -renal follow up outpatient 12. Bilateral lung atelectasis possible pulmonary edema: comfortable on room air -ambulate -IS -?diuresis 13. Fat containing umbilical hernia: no pain from hernia -careful monitoring -poss hernia repair Thank you. Patient seen and examined in collaboration with Dr. Luis Lebron. Problems: Subjective 24 Hr Interval Summary S/p I&D. Feels ok. Continues to have left buttock discomfort with min/mod drainage from wound. New tunneling noted exiting at the skin. No fevers, chills , sob, congested cough, n/v/d/dysuria. Exam/Review of Systems Vital Signs Vitals Vital Signs Date Time Temp Pulse Resp B/P Pulse Ox O2 Delivery O2 Flow Rate FiO2 08/07/17 12:16 73 08/07/17 11:32 98.1 18 153/75 97 08/05/17 02:32 2.0 28 08/03/17 20:00 Nasal Cannula Intake and Output 08/06/17 08/06/17 08/07/17 15:00 23:00 07:00 Intake Total 920 ml 600 ml Output Total 1500 ml Balance -580 ml 600 ml Exam Free Text/Dictation Constitutional: alert, obese No distress Psych: anxiety Head: atraumatic, normocephalic Eyes: EOMI, PERRL, nl conjunctiva, No icteric ENMT: mucosa pink and moist, nl external ears & nose Neck: non-tender, supple Respiratory: normal air movement, No congested cough, No labored breathing Cardiovascular: edema, regular rate and rhythm, sr Gastrointestinal: non-tender, soft, No rebound or guarding Musculoskeletal: nl extremities to inspection, No joint tenderness Extremities: normal pulses, No calf tenderness, No cyanosis Neurological: nl mental status, nl speech, nl strength Skin: rash or lesions (left buttock draining area with some slough, new tunneling noted connecting open area towards 5 o'clock exiting at skin level, tenderness, min erythema, induration improved) No diaphoresis Lymph: nl lymph nodes, nontender Results Result Diagram: 08/07/17 0325 08/07/17 0325 AB GONCALVES NP Aug 07, 2017 13:38
--- NOTE | 2017-08-07 15:17 | CONS ---
Date/Time of Note Date/Time of Note DATE: 08/07/17 TIME: 15:15 Assessment/Plan Assessment/Plan Chief Complaint/Hosp Course SUBJECTIVE DATA: No acute changes. The patient is awake, looks comfortable. Denies pain. No fevers. MICROBIOLOGY: All cultures negative. ANTIMICROBIALS: Patient remains on vancomycin and Cefepime. OBJECTIVE DATA: PHYSICAL EXAMINATION: GENERAL: This is a morbidly obese, elderly man in no distress. HEENT: Head atraumatic, normocephalic. Sclerae anicteric. Buccal mucosa pink. NECK: Supple. CHEST: Rise symmetrical. Breath sounds clear. HEART: S1, S2. ABDOMEN: Obese, soft, bowel sounds present. EXTREMITIES: Without cyanosis. ASSESSMENT: 1. Resolving sepsis. 2. Left buttock cellulitis status post I&D 3. Morbid obesity. 4. Hypertension. 5. History of cerebrovascular accident. PLAN: The patient remains stable. Continue present care. Await for wound cultures, follow surgical recommendations Problems: Consultation Date/Type/Reason Admit Date/Time Aug 02, 2017 at 23:23 Initial Consult Date 08/03/17 Type of Consultation: ID Referring Provider: CAMPOS BIGGS MD Exam/Review of Systems Vital Signs Vitals Vital Signs Date Time Temp Pulse Resp B/P Pulse Ox O2 Delivery O2 Flow Rate FiO2 08/07/17 12:16 73 08/07/17 11:32 98.1 18 153/75 97 08/05/17 02:32 2.0 28 08/03/17 20:00 Nasal Cannula Intake and Output 08/06/17 08/06/17 08/07/17 15:00 23:00 07:00 Intake Total 920 ml 600 ml Output Total 1500 ml Balance -580 ml 600 ml Results Result Diagram: 08/07/17 0325 08/07/17 0325 Results 24 hrs Laboratory Tests Test 08/07/17 03:25 White Blood Count 8.7 # Red Blood Count 4.27 L Hemoglobin 12.0 L Hematocrit 36.4 L Mean Corpuscular Volume 85.2 Mean Corpuscular Hemoglobin 28.1 L Mean Corpuscular Hemoglobin Concent 33.0 Red Cell Distribution Width 14.2 Platelet Count 222 Mean Platelet Volume 10.6 H Neutrophils % 65.9 Lymphocytes % 19.2 Monocytes % 10.0 Eosinophils % 3.9 Basophils % 0.3 Nucleated Red Blood Cells % 0.0 Neutrophils # 5.7 Lymphocytes # 1.7 Monocytes # 0.9 Eosinophils # 0.3 Basophils # 0.0 Nucleated Red Blood Cells # 0.0 Sodium Level 142 Potassium Level 3.5 Chloride Level 102 Carbon Dioxide Level 33 H Anion Gap 11 Blood Urea Nitrogen 19 Creatinine 0.72 Glucose Level 176 Calcium Level 9.0 Phosphorus Level 4.2 Magnesium Level 1.9 Albumin 3.2 L Vancomycin Level Trough 7.9 L Medications Medications Current Medications Cefepime HCl (Maxipime 1gm/50 ml (Pmx)) 50 ml @ 100 mls/hr Q12 IVPB Last administered on 08/07/17 09:08; Admin Dose 100 MLS/HR; Start 08/03/17 at 09:00 Alprazolam (Xanax) 1 mg Q12H PRN PO ANXIETY; Start 08/03/17 at 02:00 Meloxicam (Mobic) 15 mg DAILY PO Last administered on 08/07/17 09:06; Admin Dose 15 MG; Start 08/03/17 at 09:00 Atorvastatin Calcium (Lipitor) 20 mg HS PO Last administered on 08/06/17 20:49 ; Admin Dose 20 MG; Start 08/03/17 at 21:00 Aspirin (Aspirin) 81 mg DAILY PO Last administered on 08/07/17 09:07; Admin Dose 81 MG; Start 08/03/17 at 09:00 Ondansetron HCl (Zofran Inj) 4 mg Q6H PRN IV NAUSEA AND/OR VOMITING; Start at 02:00 Heparin Sodium (Porcine) (Heparin (5000 Units/0.5 ml)) 5,000 unit BID SC Last administered on 08/07/17 09:06; Admin Dose 5,000 UNIT; Start 08/03/17 at 09:00 Acetaminophen (Tylenol Tab) 650 mg Q6H PRN PO PAIN AND OR ELEVATED TEMP Last administered on 08/05/17 14:39; Admin Dose 650 MG; Start 08/03/17 at 02:00 Pantoprazole (Protonix Tab) 40 mg DAILY@06 PO Last administered on 08/07/17 05 :57; Admin Dose 40 MG; Start 08/03/17 at 06:00 [facility] This patient knight... PRN PRN XX WOUND CARE; Start 08/03/17 at 06:30 Amlodipine Besylate (Norvasc) 5 mg DAILY PO Last administered on 08/07/17 09: 08; Admin Dose 5 MG; Start 08/04/17 at 09:00 Carvedilol (Coreg) 25 mg BID PO Last administered on 08/07/17 09:07; Admin Dose 25 MG; Start 08/03/17 at 21:00 Lisinopril 40 mg 40 mg DAILY PO Last administered on 08/07/17 09:07; Admin Dose 40 MG; Start 08/04/17 at 09:00 Vancomycin HCl/ Sodium Chloride (Vancocin/NS) 500 ml @ 125 mls/hr Q12H IVPB ; Start 08/07/17 at 17:00 WENDY CHAU NP Aug 07, 2017 15:16
[2017-08-07] MEDS ORDERED: BARIUM SULF 2% 450 ML BTL (BERRY SMOOTHIE) PO ONE (16:00)
[2017-08-07] MEDS: VANCOMYCIN 1.75 GM in NS 500 ML IVPB SCH (17:13)
[2017-08-07] MEDS: ATORVASTATIN 20 MG TAB PO SCH (20:28)
[2017-08-08] VITALS (11 sets, daily range): BP systolic 119–172; BP diastolic 62–82; PULSE 48–58; RESP 18–20
[2017-08-08] MEDS: PANTOPRAZOLE (EC) 40 MG TAB PO SCH (05:30)
[2017-08-08] MEDS: VANCOMYCIN 1.75 GM in NS 500 ML IVPB SCH ×2 (05:30→16:46)
[2017-08-08 08:52] LABS: BASOPHILS % 0.4 % (0.0-2.0); EOSINOPHILS # 0.3 10^3/ul (0.0-0.5); EOSINOPHILS % 3.9 % (0.0-7.0); HEMATOCRIT 39.9 % (42.0-52.0); HEMOGLOBIN 12.5 g/dl (14.0-18.0); LYMPHOCYTES # 1.3 10^3/ul (0.8-2.9); LYMPHOCYTES % 18.1 % (15.0-51.0); MEAN CORPUSCULAR HEMOGLOBIN 26.9 pg (29.0-33.0); MEAN CORPUSCULAR HGB CONC 31.3 g/dl (32.0-37.0); MEAN PLATELET VOLUME 10.4 fl (7.4-10.4); MONOCYTE # 0.7 10^3/ul (0.3-0.9); MONOCYTES % 10.2 % (0.0-11.0); NEUTROPHIL # 4.7 10^3/ul (1.6-7.5); NEUTROPHILS % 65.3 % (39.0-77.0); PLATELET COUNT 279 10^3/UL (140-415); RED BLOOD COUNT 4.64 10^6/ul (4.70-6.10); RED CELL DISTRIBUTION WIDTH 14.4 % (11.5-14.5); WHITE BLOOD COUNT 7.1 10^3/ul (4.8-10.8)
[2017-08-08] MEDS: ASPIRIN 81 MG TAB PO SCH (08:57)
[2017-08-08] MEDS: CEFEPIME 1GM/50 ML (PMX) 50 ML IVPB SCH ×2 (08:57→22:03)
[2017-08-08] MEDS: MELOXICAM 15 MG TAB PO SCH (08:57)
[2017-08-08] MEDS: AMLODIPINE 5 MG TAB PO SCH (08:58)
[2017-08-08] MEDS: LISINOPRIL 20 MG TAB PO SCH (08:58)
[2017-08-08] MEDS: HEPARIN 5,000 UNIT/0.5 ML VIAL SC SCH ×2 (09:02→22:03)
[2017-08-08 09:22] LABS: ALBUMIN 3.3 g/dl (3.3-4.9); CALCIUM 9.4 mg/dl (8.4-10.2); CREATININE 0.67 mg/dl (0.61-1.24); MAGNESIUM 1.9 mg/dl (1.7-2.5); PHOSPHORUS 4.3 mg/dl (2.5-4.9); POTASSIUM 4.2 mmol/L (3.5-5.1)
--- NOTE | 2017-08-08 09:48 | PN ---
Date/Time of Note Date/Time of Note DATE: 08/08/17 TIME: 09:39 Assessment/Plan Lines/Catheters IV Catheter Type (from Nrs): Peripheral IV [place] in Place (from Nrs): No Assessment/Plan Chief Complaint/Hosp Course 1. Left buttock cellulitis possible abscess. S/p I &D 08/07 (multiple thin tunneling tracks within the wound and one toward 5/6 o'clock that exits at skin level), continued drainage; hard mass noted on left buttock - Pending CT -cont IV antibiotics -Offloading -Warm compress -local wound care with packing -will likely need sng vs. nursing for wound care in outpatient setting 2. Significant leukocytosis with sepsis possibly secondary above possibly other : afebrile and leukocytosis normalized -As above 3. Morbid obese -Encourage diet optimization -Encourage exercise 4. CVA history -Medical optimization 5. Hypertension -Diet and medication optimization -Weight loss recommended 6. Cholelithiasis without cholecystitis: no abd pain, lft's normal -diet and lifestyle optimiation -monitor 7. Prediabetes: hga1c:6.2 -optimize sugar control -weight management 8. Diverticulosis: -gi followup -diet modification and careful monitoring 9. Bilateral renal cyst: asymptomatic; nl kidney function -renal follow up outpatient 10. Bilateral lung atelectasis possible pulmonary edema: comfortable on room air -ambulate -IS -?diuresis 11. Fat containing umbilical hernia: no pain from hernia -careful monitoring -poss hernia repair outpatient Thank you. Patient seen and examined in collaboration with Dr. Luis Lebron. Problems: Subjective 24 Hr Interval Summary Patient feels well. Less drainage/odor from wound. Pending CT pelvis. No fevers , chills, sob, congestion, cough, cp, palpitations, n/v/d/dysuria, knight dizziness. Exam/Review of Systems Vital Signs Vitals Vital Signs Date Time Temp Pulse Resp B/P Pulse Ox O2 Delivery O2 Flow Rate FiO2 08/08/17 08:24 50 08/08/17 07:39 98.0 18 172/82 98 08/05/17 02:32 2.0 28 Intake and Output 08/07/17 08/07/17 08/08/17 15:00 23:00 07:00 Intake Total 50 ml 1440 ml 600 ml Output Total 550 ml Balance 50 ml 890 ml 600 ml Exam Free Text/Dictation Constitutional: alert, obese No distress Psych: anxiety (min) Head: atraumatic, normocephalic Eyes: EOMI, PERRL, nl conjunctiva, No icteric ENMT: mucosa pink and moist, nl external ears & nose Neck: non-tender, supple Respiratory: normal air movement, No congested cough, No labored breathing Cardiovascular: regular rate and rhythm, sr Gastrointestinal: non-tender, soft, rotund No rebound or guarding Musculoskeletal: nl extremities to inspection, No joint tenderness Extremities: normal pulses, No calf tenderness, No cyanosis Neurological: nl mental status, nl speech, nl strength Skin: rash or lesions (left buttock draining area with some slough, tunneling noted connecting open area towards 5/6 o'clock exiting at skin level with some slough, tenderness improved, erythema improved, induration improved) palpable hard mass on left buttock No diaphoresis Lymph: nl lymph nodes, nontender Results Result Diagram: 08/08/17 0740 08/08/17 0740 AB GONCALVES NP Aug 08, 2017 09:48
[2017-08-08] MEDS ORDERED: IOHEXOL 300MG/ML 150 ML BTL ONE (11:08)
[2017-08-08] MEDS ORDERED: SOD CHLORIDE 0.9% 100 ML ONE (11:08)
--- NOTE | 2017-08-08 14:52 | RADRPT ---
PROCEDURE: CT Pelvis. CLINICAL INDICATION: Left gluteal mass. TECHNIQUE: Multiple contiguous axial CT images of the pelvis were obtained following the administr ation of 100 cc of Omnipaque-300. Coronal and sagittal reconstructions were also performed. CTDIvol (mGy): 15.01; Total exam DLP (mGy-cm): 640.09. One or more of the following dose reduction techniques were utilized: - Automated exposure control. - Adjustment of the mA and/or kV according to patient size. - Use of iterative reconstruction technique. COMPARISON: 08/04/2017. FINDINGS: Persistent stranding of the superficial soft tissues of the left gluteal fold extending to the peria nal soft tissues is again identified and has decreased since previous examination. There is no evide nce of organized fluid collection. The ischioanal and ischiorectal fossa are clear. The bladder is normal in contour. The prostate gland and seminal vesicles are unremarkable. There is no free pelvic fluid. There is no pelvic sidewall or inguinal lymphadenopathy. The small and large intestines situated in the pelvis are unremarkable. The appendix is normal. There is a large fat containing umbilical hernia. The aperture of the hernia measures approximately 3.3 cm in greatest dimension. The hernia sac measures approximately 8.0 cm in greatest dimension. Degenerative changes of the lower lumbar spine are observed. IMPRESSION: Persistent infiltration of the superficial soft tissues of the left gluteal fold extending to the pe rianal soft tissues, decreased. There is no evidence of organized fluid collection. Large fat containing umbilical hernia, unchanged. RPTAT: AAQQ .Lou Little MD, Date Time Electronically viewed and signed by .Lou Little MD, on 08/08/2017 14:52 .T/
--- NOTE | 2017-08-08 14:56 | CONS ---
Date/Time of Note Date/Time of Note DATE: 08/08/17 TIME: 14:55 Assessment/Plan Assessment/Plan Chief Complaint/Hosp Course SUBJECTIVE DATA: Alert, feels good, denies pain, no fevers WBC 7.1, no shift no bands, BUN [address] of the pelvis done this morning revealed persistent infiltration of the superficial soft tissue of the left gluteal fold extending to the. Anal soft tissue, decreased. No evidence of organized fluid collection MICROBIOLOGY: All cultures negative. ANTIMICROBIALS: Patient remains on vancomycin and Cefepime. OBJECTIVE DATA: PHYSICAL EXAMINATION: GENERAL: This is a morbidly obese, elderly man in no distress. HEENT: Head atraumatic, normocephalic. Sclerae anicteric. Buccal mucosa pink. NECK: Supple. CHEST: Rise symmetrical. Breath sounds clear. HEART: S1, S2. ABDOMEN: Obese, soft, bowel sounds present. EXTREMITIES: Without cyanosis. ASSESSMENT: 1. Resolving sepsis. 2. Left buttock cellulitis status post I&D 3. Morbid obesity. 4. Hypertension. 5. History of cerebrovascular accident. PLAN: The patient remains stable. Continue present care. Await for wound cultures, follow surgical recommendations [facility] staff Problems: Consultation Date/Type/Reason Admit Date/Time Aug 02, 2017 at 23:23 Initial Consult Date 08/03/17 Type of Consultation: ID Referring Provider: CAMPOS BIGGS MD Exam/Review of Systems Vital Signs Vitals Vital Signs Date Time Temp Pulse Resp B/P Pulse Ox O2 Delivery O2 Flow Rate FiO2 08/08/17 12:21 98.0 59 18 126/65 98 08/05/17 02:32 2.0 28 Intake and Output 08/07/17 08/07/17 08/08/17 15:00 23:00 07:00 Intake Total 50 ml 1440 ml 600 ml Output Total 550 ml Balance 50 ml 890 ml 600 ml Results Result Diagram: 08/08/17 0740 08/08/17 0740 Results 24 hrs Laboratory Tests Test 08/08/17 07:40 White Blood Count 7.1 Red Blood Count 4.64 L Hemoglobin 12.5 L Hematocrit 39.9 L Mean Corpuscular Volume 86.0 Mean Corpuscular Hemoglobin 26.9 L Mean Corpuscular Hemoglobin Concent 31.3 L Red Cell Distribution Width 14.4 Platelet Count 279 # Mean Platelet Volume 10.4 Neutrophils % 65.3 Lymphocytes % 18.1 Monocytes % 10.2 Eosinophils % 3.9 Basophils % 0.4 Nucleated Red Blood Cells % 0.0 Neutrophils # 4.7 Lymphocytes # 1.3 Monocytes # 0.7 Eosinophils # 0.3 Basophils # 0.0 Nucleated Red Blood Cells # 0.0 Sodium Level 138 Potassium Level 4.2 Chloride Level 99 Carbon Dioxide Level 34 H Anion Gap 9 Blood Urea Nitrogen 14 Creatinine 0.67 Glucose Level 136 # Calcium Level 9.4 Phosphorus Level 4.3 Magnesium Level 1.9 Albumin 3.3 Medications Medications Current Medications Cefepime HCl (Maxipime 1gm/50 ml (Pmx)) 50 ml @ 100 mls/hr Q12 IVPB Last administered on 08/08/17 08:57; Admin Dose 100 MLS/HR; Start 08/03/17 at 09:00 Alprazolam (Xanax) 1 mg Q12H PRN PO ANXIETY Last administered on 08/07/17 21: 40; Admin Dose 1 MG; Start 08/03/17 at 02:00 Meloxicam (Mobic) 15 mg DAILY PO Last administered on 08/08/17 08:57; Admin Dose 15 MG; Start 08/03/17 at 09:00 Atorvastatin Calcium (Lipitor) 20 mg HS PO Last administered on 08/07/17 20:28 ; Admin Dose 20 MG; Start 08/03/17 at 21:00 Aspirin (Aspirin) 81 mg DAILY PO Last administered on 08/08/17 08:57; Admin Dose 81 MG; Start 08/03/17 at 09:00 Ondansetron HCl (Zofran Inj) 4 mg Q6H PRN IV NAUSEA AND/OR VOMITING; Start at 02:00 Heparin Sodium (Porcine) (Heparin (5000 Units/0.5 ml)) 5,000 unit BID SC Last administered on 08/08/17 09:02; Admin Dose 5,000 UNIT; Start 08/03/17 at 09:00 Acetaminophen (Tylenol Tab) 650 mg Q6H PRN PO PAIN AND OR ELEVATED TEMP Last administered on 08/05/17 14:39; Admin Dose 650 MG; Start 08/03/17 at 02:00 Pantoprazole (Protonix Tab) 40 mg DAILY@06 PO Last administered on 08/08/17 05 :30; Admin Dose 40 MG; Start 08/03/17 at 06:00 Miscellaneous Information (Pending [facility] Order For Wound Care) This patient knight... PRN PRN XX WOUND CARE; Start 08/03/17 at 06:30 Amlodipine Besylate (Norvasc) 5 mg DAILY PO Last administered on 08/08/17 08: 58; Admin Dose 5 MG; Start 08/04/17 at 09:00 Carvedilol (Coreg) 25 mg BID PO Last administered on 08/08/17 08:58; Admin Dose 25 MG; Start 08/03/17 at 21:00 Lisinopril 40 mg 40 mg DAILY PO Last administered on 08/08/17 08:58; Admin Dose 40 MG; Start 08/04/17 at 09:00 Vancomycin HCl/ Sodium Chloride (Vancocin/NS) 500 ml @ 125 mls/hr Q12H IVPB Last administered on 08/08/17 05:30; Admin Dose 125 MLS/HR; Start 08/07/17 at 17:00 WENDY CHAU NP Aug 08, 2017 14:56
--- NOTE | 2017-08-08 16:13 | PN ---
Date/Time of Note Date/Time of Note DATE: 08/08/17 TIME: 16:02 Assessment/Plan VTE Prophylaxis VTE Prophylaxis Intervention: SCD's Lines/Catheters IV Catheter Type (from Nrs): Peripheral IV Urinary Cath still in place: No Assessment/Plan Assessment/Plan 1. Sepsis secondary to perianal abscess- resolved - ID on board and appreciate recommendations - Will continue current treatment and await culture results - WBC normalized 2. Left buttocks cellulitis s/p I&D - Surgery on board and recommendations appreciated - New finding of hard mass and CT scan performed to reassess - Continue antibiotics and fluids. Awaiting culture results - CT abd/pelvis shows phlegmonous changes, fluid 9mm x 4mm but no evidence of early abscess 3. Rhabdomyolysis- resolved 4. Prediabetes - A1c 6.2 - Encourage proper diet and improve exercise regime 5. h/o CVA - stable 6. HTN - will continue to monitor and adjust medication as needed 7. Obesity - encourage improvement of diet and exercise Subjective 24 Hr Interval Summary Free Text/Dictation Patient states he has discomfort at the site of I&D but denies any new complaints. Agreeable with plans to rescan area due to finding of hard mass by Surgery. Patient also states he has no help at home and would rather go to SNF than have home health if possible. Does live with sister but states she is older and overweight and not able to care for herself and him. Exam/Review of Systems Vital Signs Vitals Vital Signs Date Time Temp Pulse Resp B/P Pulse Ox O2 Delivery O2 Flow Rate FiO2 08/08/17 12:21 98.0 59 18 126/65 98 08/05/17 02:32 2.0 28 Intake and Output 08/07/17 08/07/17 08/08/17 15:00 23:00 07:00 Intake Total 50 ml 1440 ml 600 ml Output Total 550 ml Balance 50 ml 890 ml 600 ml Exam General: NAD, cooperative, awake and alert CVS: regular rate and rhythm, no murmurs Lungs: CTA b/l. no wheezes or crackles Abd: soft, NT, ND. no rebound or guarding Ext: no cyanosis, edema, or clubbing Skin: left buttocks draining with sloughing, mild tenderness, hard mass palpated Results Result Diagram: 08/08/17 0740 08/08/17 0740 Results 24 hrs Laboratory Tests Test 08/08/17 07:40 White Blood Count 7.1 Red Blood Count 4.64 L Hemoglobin 12.5 L Hematocrit 39.9 L Mean Corpuscular Volume 86.0 Mean Corpuscular Hemoglobin 26.9 L Mean Corpuscular Hemoglobin Concent 31.3 L Red Cell Distribution Width 14.4 Platelet Count 279 # Mean Platelet Volume 10.4 Neutrophils % 65.3 Lymphocytes % 18.1 Monocytes % 10.2 Eosinophils % 3.9 Basophils % 0.4 Nucleated Red Blood Cells % 0.0 Neutrophils # 4.7 Lymphocytes # 1.3 Monocytes # 0.7 Eosinophils # 0.3 Basophils # 0.0 Nucleated Red Blood Cells # 0.0 Sodium Level 138 Potassium Level 4.2 Chloride Level 99 Carbon Dioxide Level 34 H Anion Gap 9 Blood Urea Nitrogen 14 Creatinine 0.67 Glucose Level 136 # Calcium Level 9.4 Phosphorus Level 4.3 Magnesium Level 1.9 Albumin 3.3 Medications Medications Current Medications Cefepime HCl (Maxipime 1gm/50 ml (Pmx)) 50 ml @ 100 mls/hr Q12 IVPB Last administered on 08/08/17 08:57; Admin Dose 100 MLS/HR; Start 08/03/17 at 09:00 Alprazolam (Xanax) 1 mg Q12H PRN PO ANXIETY Last administered on 08/07/17 21: 40; Admin Dose 1 MG; Start 08/03/17 at 02:00 Meloxicam (Mobic) 15 mg DAILY PO Last administered on 08/08/17 08:57; Admin Dose 15 MG; Start 08/03/17 at 09:00 Atorvastatin Calcium (Lipitor) 20 mg HS PO Last administered on 08/07/17 20:28 ; Admin Dose 20 MG; Start 08/03/17 at 21:00 Aspirin (Aspirin) 81 mg DAILY PO Last administered on 08/08/17 08:57; Admin Dose 81 MG; Start 08/03/17 at 09:00 Ondansetron HCl (Zofran Inj) 4 mg Q6H PRN IV NAUSEA AND/OR VOMITING; Start at 02:00 Heparin Sodium (Porcine) (Heparin (5000 Units/0.5 ml)) 5,000 unit BID SC Last administered on 08/08/17 09:02; Admin Dose 5,000 UNIT; Start 08/03/17 at 09:00 Acetaminophen (Tylenol Tab) 650 mg Q6H PRN PO PAIN AND OR ELEVATED TEMP Last administered on 08/05/17 14:39; Admin Dose 650 MG; Start 08/03/17 at 02:00 Pantoprazole (Protonix Tab) 40 mg DAILY@06 PO Last administered on 08/08/17 05 :30; Admin Dose 40 MG; Start 08/03/17 at 06:00 Miscellaneous Information ([facility] This patient knight... PRN PRN XX WOUND CARE; Start 08/03/17 at 06:30 Amlodipine Besylate (Norvasc) 5 mg DAILY PO Last administered on 08/08/17 08: 58; Admin Dose 5 MG; Start 08/04/17 at 09:00 Carvedilol (Coreg) 25 mg BID PO Last administered on 08/08/17 08:58; Admin Dose 25 MG; Start 08/03/17 at 21:00 Lisinopril 40 mg 40 mg DAILY PO Last administered on 08/08/17 08:58; Admin Dose 40 MG; Start 08/04/17 at 09:00 Vancomycin HCl/ Sodium Chloride (Vancocin/NS) 500 ml @ 125 mls/hr Q12H IVPB Last administered on 08/08/17 05:30; Admin Dose 125 MLS/HR; Start 08/07/17 at 17:00 KEE DAVIS MD Aug 08, 2017 16:13
[2017-08-08] MEDS: ACETAMINOPHEN 325 MG TAB PO PRN (18:33)
[2017-08-08] MEDS: ATORVASTATIN 20 MG TAB PO SCH (22:02)
[2017-08-09 02:00] VITALS: BP 133/60; RESP 20
[2017-08-09] MEDS: VANCOMYCIN 1.75 GM in NS 500 ML IVPB SCH (04:23)
[2017-08-09] MEDS: PANTOPRAZOLE (EC) 40 MG TAB PO SCH (04:25)
[2017-08-09 06:15] LABS: BASOPHIL # 0.1 10^3/ul (0.0-0.1); BASOPHILS % 0.7 % (0.0-2.0); EOSINOPHILS # 0.3 10^3/ul (0.0-0.5); EOSINOPHILS % 4.7 % (0.0-7.0); HEMATOCRIT 39.7 % (42.0-52.0); HEMOGLOBIN 12.7 g/dl (14.0-18.0); LYMPHOCYTES # 1.3 10^3/ul (0.8-2.9); LYMPHOCYTES % 17.6 % (15.0-51.0); MEAN CORPUSCULAR HEMOGLOBIN 27.6 pg (29.0-33.0); MEAN CORPUSCULAR VOLUME 86.3 fl (82.0-101.0); MEAN PLATELET VOLUME 9.9 fl (7.4-10.4); MONOCYTE # 0.8 10^3/ul (0.3-0.9); MONOCYTES % 11.5 % (0.0-11.0); NEUTROPHIL # 4.5 10^3/ul (1.6-7.5); NEUTROPHILS % 61.8 % (39.0-77.0); PLATELET COUNT 290 10^3/UL (140-415); RED CELL DISTRIBUTION WIDTH 14.4 % (11.5-14.5); WHITE BLOOD COUNT 7.3 10^3/ul (4.8-10.8)
[2017-08-09 07:32] LABS: ALBUMIN 3.6 g/dl (3.3-4.9); CALCIUM 9.2 mg/dl (8.4-10.2); CREATININE 0.8 mg/dl (0.61-1.24); POTASSIUM 4.2 mmol/L (3.5-5.1)
[2017-08-09 08:10] VITALS: BP 145/70; RESP 20
[2017-08-09] MEDS: HEPARIN 5,000 UNIT/0.5 ML VIAL SC SCH ×2 (09:20→21:06)
[2017-08-09] MEDS: ASPIRIN 81 MG TAB PO SCH (09:21)
[2017-08-09] MEDS: LISINOPRIL 20 MG TAB PO SCH (09:21)
[2017-08-09] MEDS: CEFEPIME 1GM/50 ML (PMX) 50 ML IVPB SCH (09:23)
[2017-08-09] MEDS: AMLODIPINE 5 MG TAB PO SCH (09:23)
[2017-08-09] MEDS: MELOXICAM 15 MG TAB PO SCH (10:47)
--- NOTE | 2017-08-09 13:15 | PN ---
Date/Time of Note Date/Time of Note DATE: 08/09/17 TIME: 13:04 Assessment/Plan Lines/Catheters IV Catheter Type (from Nrs): Saline Lock [place] in Place (from Nrs): No Assessment/Plan Chief Complaint/Hosp Course 1. Left buttock cellulitis w abscess. S/p I &D 08/07 (multiple thin tunneling tracks within the wound and one toward 5/6 o'clock that exits at skin level), continued drainage but odor improved; hard mass noted on left buttock smaller by palpation- no noted fluid collections/masses per CT and patient wound improved -may benefit from oral antibiotics at discharge -Offloading -Warm compress -local wound care with packing; to continue after discharge -will likely need snf vs. nursing for wound care in outpatient setting; -May be discharged per medical team 2. Significant leukocytosis with sepsis possibly secondary above possibly other : afebrile and leukocytosis normalized -As above 3. Morbid obese -Encourage diet optimization -Encourage exercise 4. CVA history -Medical optimization 5. Hypertension -Diet and medication optimization -Weight loss recommended 6. Cholelithiasis without cholecystitis: no abd pain, lft's normal -diet and lifestyle optimiation -monitor 7. Prediabetes: hga1c:6.2 -optimize sugar control -weight management 8. Diverticulosis: -gi followup -diet modification and careful monitoring 9. Bilateral renal cyst: asymptomatic; nl kidney function -renal follow up outpatient 10. Bilateral lung atelectasis possible pulmonary edema: comfortable on room air -ambulate -IS -?diuresis 11. Fat containing umbilical hernia: no pain from hernia -careful monitoring -poss hernia repair outpatient Thank you. Patient seen and examined in collaboration with Dr. Luis Lebron. Problems: Subjective 24 Hr Interval Summary Feels well. Improved discomfort from left buttock. Improved drainage/odor from wound. No fevers, chills, sob, congested cough, cp, palpitations, knight, dizziness. Exam/Review of Systems Vital Signs Vitals Vital Signs Date Time Temp Pulse Resp B/P Pulse Ox O2 Delivery O2 Flow Rate FiO2 08/10/17 07:55 98.6 62 16 130/76 100 Intake and Output 08/09/17 08/09/17 08/10/17 15:00 23:00 07:00 Intake Total 550 ml 1360 ml 250 ml Balance 550 ml 1360 ml 250 ml Exam Free Text/Dictation Constitutional: alert, obese No distress Psych: pleasant Head: atraumatic, normocephalic Eyes: EOMI, PERRL, nl conjunctiva, No icteric ENMT: mucosa pink and moist, nl external ears & nose Neck: non-tender, supple Respiratory: normal air movement, No congested cough, No labored breathing Cardiovascular: regular rate and rhythm, sr Gastrointestinal: non-tender, soft, rotund No rebound or guarding Musculoskeletal: nl extremities to inspection, No joint tenderness Extremities: normal pulses, No calf tenderness, No cyanosis Neurological: nl mental status, nl speech, nl strength Skin: rash or lesions (left buttock wound with slough/debris continuing to drain, tunneling noted connecting open area towards 5/6 o'clock exiting at skin level with some slough/debris, tenderness much improved, erythema much improved , induration improved) palpable hard mass on left buttock smaller by palpation No diaphoresis Lymph: nl lymph nodes, nontender Results Result Diagram: 08/10/17 0534 08/10/17 0533 AB [employer] Aug 09, 2017 13:15 AB [employer] Aug 09, 2017 13:15
[2017-08-09 14:00] VITALS: BP 156/79; RESP 18
[2017-08-09] MEDS ORDERED: HYDROCODONE/APAP (5/325) TAB PO PRN (16:00)
--- NOTE | 2017-08-09 16:01 | PN ---
Date/Time of Note Date/Time of Note DATE: 08/09/17 TIME: 15:56 Assessment/Plan VTE Prophylaxis VTE Prophylaxis Intervention: SCD's Lines/Catheters IV Catheter Type (from Nrs): Saline Lock Urinary Cath still in place: No Assessment/Plan Assessment/Plan 1. Sepsis secondary to perianal abscess- resolved - ID on board and appreciate recommendations - Will continue current treatment - WBC normalized 2. Left buttocks cellulitis s/p I&D - Surgery on board and recommendations appreciated - New finding of hard mass and CT scan showed no noted fluid collections/masses - Continue antibiotics and fluids. - CT abd/pelvis shows phlegmonous changes, fluid 9mm x 4mm but no evidence of early abscess - [place] for pain 3. Rhabdomyolysis- resolved 4. Prediabetes - A1c 6.2 - Encourage proper diet and improve exercise regime 5. h/o CVA - stable 6. HTN - will continue to monitor and adjust medication as needed 7. Obesity - encourage improvement of diet and exercise 8. Disposition - Will need SNF vs based on insurance for wound packing and help with ADLs Subjective 24 Hr Interval Summary Free Text/Dictation Patient doing well and still c/o discomfort at buttocks area. No new complaints and no acute overnight events Exam/Review of Systems Vital Signs Vitals Vital Signs Date Time Temp Pulse Resp B/P Pulse Ox O2 Delivery O2 Flow Rate FiO2 08/09/17 14:00 98.0 62 18 156/79 97 Intake and Output 08/08/17 08/08/17 08/09/17 15:00 23:00 07:00 Intake Total 550 ml 800 ml 630 ml Output Total 1300 ml Balance 550 ml -500 ml 630 ml Exam General: NAD, cooperative, awake and alert CVS: regular rate and rhythm, no murmurs Lungs: CTA b/l. no wheezes or crackles Abd: soft, NT, ND. no rebound or guarding Ext: no cyanosis, edema, or clubbing Skin: left buttocks wound packed, mild tenderness, hard mass palpated Results Result Diagram: 08/09/17 0430 08/09/17 0537 Results 24 hrs Laboratory Tests Test 08/09/17 04:30 08/09/17 05:37 White Blood Count 7.3 Red Blood Count 4.60 L Hemoglobin 12.7 L Hematocrit 39.7 L Mean Corpuscular Volume 86.3 Mean Corpuscular Hemoglobin 27.6 L Mean Corpuscular Hemoglobin Concent 32.0 Red Cell Distribution Width 14.4 Platelet Count 290 Mean Platelet Volume 9.9 Neutrophils % 61.8 Lymphocytes % 17.6 Monocytes % 11.5 H Eosinophils % 4.7 Basophils % 0.7 Nucleated Red Blood Cells % 0.0 Neutrophils # 4.5 Lymphocytes # 1.3 Monocytes # 0.8 Eosinophils # 0.3 Basophils # 0.1 Nucleated Red Blood Cells # 0.0 Sodium Level 141 Potassium Level 4.2 Chloride Level 100 Carbon Dioxide Level 33 H Anion Gap 12 Blood Urea Nitrogen 19 Creatinine 0.80 Glucose Level 158 Calcium Level 9.2 Phosphorus Level 4.0 Magnesium Level 2.0 Albumin 3.6 Medications Medications Current Medications Alprazolam (Xanax) 1 mg Q12H PRN PO ANXIETY Last administered on 08/07/17 21: 40; Admin Dose 1 MG; Start 08/03/17 at 02:00 Meloxicam (Mobic) 15 mg DAILY PO Last administered on 08/09/17 10:47; Admin Dose 15 MG; Start 08/03/17 at 09:00 Atorvastatin Calcium (Lipitor) 20 mg HS PO Last administered on 08/08/17 22:02 ; Admin Dose 20 MG; Start 08/03/17 at 21:00 Aspirin (Aspirin) 81 mg DAILY PO Last administered on 08/09/17 09:21; Admin Dose 81 MG; Start 08/03/17 at 09:00 Ondansetron HCl (Zofran Inj) 4 mg Q6H PRN IV NAUSEA AND/OR VOMITING; Start at 02:00 Heparin Sodium (Porcine) (Heparin (5000 Units/0.5 ml)) 5,000 unit BID SC Last administered on 08/09/17 09:20; Admin Dose 5,000 UNIT; Start 08/03/17 at 09:00 Acetaminophen (Tylenol Tab) 650 mg Q6H PRN PO PAIN AND OR ELEVATED TEMP Last administered on 08/08/17 18:33; Admin Dose 650 MG; Start 08/03/17 at 02:00 Pantoprazole (Protonix Tab) 40 mg DAILY@06 PO Last administered on 08/09/17 04 :25; Admin Dose 40 MG; Start 08/03/17 at 06:00 Miscellaneous Information (Pending Santyl Order For Wound Care) This patient knight... PRN PRN XX WOUND CARE; Start 08/03/17 at 06:30 Amlodipine Besylate (Norvasc) 5 mg DAILY PO Last administered on 08/09/17 09: 23; Admin Dose 5 MG; Start 08/04/17 at 09:00 Carvedilol (Coreg) 25 mg BID PO Last administered on 08/09/17 09:22; Admin Dose 25 MG; Start 08/03/17 at 21:00 Lisinopril (Zestril) 40 mg DAILY PO Last administered on 08/09/17 09:21; Admin Dose 40 MG; Start 08/04/17 at 09:00 Trimethoprim/ Sulfamethoxazole (Bactrim (Ds)) 1 tab BID PO ; Start 08/09/17 at 21:00 KEE DAVIS MD Aug 09, 2017 16:01
[2017-08-09 20:41] VITALS: BP 123/58; RESP 18
[2017-08-09] MEDS: ATORVASTATIN 20 MG TAB PO SCH (21:04)
[2017-08-09] MEDS: TRIMETHOPRIM/SULFAMETHOX (DS) TAB PO SCH (21:04)
[2017-08-10 03:20] VITALS: BP 155/76; RESP 19
--- NOTE | 2017-08-10 06:09 | PN ---
DATE: 08/09/2017 SUBJECTIVE DATA: No events overnight. Patient is alert, feels good, denies pain, no fevers. LABORATORY AND DIAGNOSTIC DATA: WBC 7.3, no shift, no bands. BUN 19, creatinine 0.80. PHYSICAL EXAMINATION: GENERAL: Morbidly obese, elderly man in no distress. HEENT: Head atraumatic, normocephalic. Sclerae anicteric. Buccal mucosa pink. NECK: Supple. CHEST: Rise symmetrical. Breath sounds diminished at the bases. HEART: S1, S2. ABDOMEN: Soft, bowel sounds present. ASSESSMENT: 1. Status post sepsis. 2. Status post left gluteal abscess drainage. 3. Morbid obesity. 4. Hypertension. PLAN: Patient remains stable. We are going to downgrade antibiotics to oral Bactrim. Continue local wound care per surgical recommendations. Dictated By: Magdalena Nino NP /skylar/annie /Document#: [id number]
[2017-08-10 06:15] LABS: BASOPHIL # 0.1 10^3/ul (0.0-0.1); BASOPHILS % 0.8 % (0.0-2.0); EOSINOPHILS # 0.3 10^3/ul (0.0-0.5); EOSINOPHILS % 3.7 % (0.0-7.0); HEMATOCRIT 40.1 % (42.0-52.0); HEMOGLOBIN 12.6 g/dl (14.0-18.0); LYMPHOCYTES # 1.8 10^3/ul (0.8-2.9); LYMPHOCYTES % 20.7 % (15.0-51.0); MEAN CORPUSCULAR HEMOGLOBIN 27.3 pg (29.0-33.0); MEAN CORPUSCULAR HGB CONC 31.4 g/dl (32.0-37.0); MEAN CORPUSCULAR VOLUME 86.8 fl (82.0-101.0); MEAN PLATELET VOLUME 10.2 fl (7.4-10.4); MONOCYTE # 0.9 10^3/ul (0.3-0.9); MONOCYTES % 10.1 % (0.0-11.0); NEUTROPHIL # 5.1 10^3/ul (1.6-7.5); NEUTROPHILS % 59.8 % (39.0-77.0); PLATELET COUNT 336 10^3/UL (140-415); RED BLOOD COUNT 4.62 10^6/ul (4.70-6.10); RED CELL DISTRIBUTION WIDTH 14.6 % (11.5-14.5); WHITE BLOOD COUNT 8.6 10^3/ul (4.8-10.8)
[2017-08-10] MEDS: PANTOPRAZOLE (EC) 40 MG TAB PO SCH (06:23)
[2017-08-10 06:29] LABS: ALBUMIN 3.5 g/dl (3.3-4.9); CALCIUM 9.4 mg/dl (8.4-10.2); CREATININE 0.75 mg/dl (0.61-1.24); POTASSIUM 4.5 mmol/L (3.5-5.1)
[2017-08-10 07:55] VITALS: BP 130/76; RESP 16
[2017-08-10] MEDS: MELOXICAM 15 MG TAB PO SCH (09:18)
[2017-08-10] MEDS: TRIMETHOPRIM/SULFAMETHOX (DS) TAB PO SCH (09:18)
[2017-08-10] MEDS: ASPIRIN 81 MG TAB PO SCH (09:18)
[2017-08-10] MEDS: AMLODIPINE 5 MG TAB PO SCH (09:19)
[2017-08-10] MEDS: LISINOPRIL 20 MG TAB PO SCH (09:19)
[2017-08-10] MEDS: HEPARIN 5,000 UNIT/0.5 ML VIAL SC SCH (09:20)
[2017-08-10] MEDS ORDERED: ACET325T40 PO ×2 (11:39→12:21)
[2017-08-10] MEDS ORDERED: Pending Collagenase Order XX ×3 (11:39→12:32)
--- NOTE | 2017-08-10 11:47 | PDOCDIS ---
Discharge Instructions DIAGNOSIS Discharge Diagnosis 1. Sepsis secondary to perianal abscess- resolved 2. Left buttocks abscess s/p I&D 3. Rhabdomyolysis- resolved 4. Prediabetes 5. h/o CVA 6. HTN CONDITION Patient Condition: Good HOME CARE INSTRUCTIONS: Diet Instructions: Low Fat /CholesterolSpecial Diet: CARDIAC ACTIVITY: Activity Restrictions: Avoid heavy lifting FOLLOW UP/APPOINTMENTS Follow-up Plan 1. You will need to continue taking the antibiotics, Bactrim 2. Apply warm compresses to left buttocks area 3. You will need to have home health continue local wound care with packing. Apply Santyl to the wound 4. Follow up with your Primary care physician in 1 week 5. If pain or wound worsens, or you start to experience fevers, chills, nausea, vomiting, or any other concerning symptoms, return to ED REFERRALS Other Referrals Luis Lebron MD Specialty: General Surgery Office Address [id number] [address] Office KEE DAVIS MD Aug 10, 2017 11:47
[2017-08-10] MEDS ORDERED: SULF-182 PO ×3 (11:49→12:32)
[2017-08-10] MEDS ORDERED: ASPI81TA3 PO ×3 (11:49→12:33)
--- NOTE | 2017-08-10 11:54 | DS ---
Date/Time of Note Date/Time of Note DATE: 08/10/17 TIME: 11:54 Discharge Summary Admission/Discharge Info Admit Date/Time Aug 02, 2017 at 23:23 Discharge Date/Time Discharge Diagnosis 1. Sepsis secondary to perianal abscess- resolved 2. Left buttocks abscess s/p I&D 3. Rhabdomyolysis- resolved 4. Prediabetes 5. h/o CVA 6. HTN Patient Condition: Good Consults Surgery- Dr. Lebron Infectious disease- Dr. Livingston Procedures 08/07- I&D of wound on left buttocks Hx of Present Illness This is a 62-year-old male with a history of CVA, hypertension, dyslipidemia, peripheral vascular disease who presented to the ER complaining of abdominal pain, fever and probable altered mentation. Patient is not fully oriented and that his history is not reliable and as such information is gathered from chart review and from the ER physician. Patient fell sustaining some superficial laceration to the left forehead, per patient's 2 days ago but per daughter today. Patient does not have any complaints and he is saying that he is feeling well. When he presented to the ER, BP 160/89, heart rate 95. He was febrile with a temp of 103.6. Labs shows a WBC of almost 22,000, potassium 2.9 and initial lactate 2.5 which trended down to 1. Urinalysis negative for UTI. Chest x-ray shows new left lung base mild atelectasis. Head CT shows atrophy and a worsening small vessel microangiopathic change. Patient has swelling, erythema was some ulcer on his left buttock. Patient stated that she was not aware of this and it denied pain in the area. Hospital Course Patient was admitted and Surgery and ID were consulted. Imaging was performed to assess for presence of abscess formation. CT abdomen and pelvis was performed and showed phlegmonous changes extending from the left anal region and posteriorly along the left gluteal fold. A thin region of ill-defined low attenuation measuring 9 mm x 4 mm (series 3, image 186) is noted and may represent very early fluid organization. No enhancing barrera are seen to suggest a mature abscess. Cholelithiasis without evidence of acute cholecystitis. Sigmoid diverticulosis without evidence of acute diverticulitis. Bilateral renal cysts and other sub centimeter low attenuation lesions too small to definitively characterize, as described above. Mild bilateral posterior dependent atelectasis and mild scattered ground-glass opacities which may represent a mild pulmonary edema. Fat containing periumbilical hernia. Patient was started on IV antibiotics and advised to apply warm compresses to area. The wound started to drain and I&D was performed. multiple thin tunneling tracks within the wound and one toward 5/6 o'clock that exits at skin level was seen. A hard mass was noted and repeat CT scan of pelvis was performed and showed persistent infiltration of the superficial soft tissues of the left gluteal fold extending to the perianal soft tissues, decreased. There is no evidence of organized fluid collection. Large fat containing umbilical hernia, unchanged. Patient was continued on antibiotics and wound care was performed. Patients condition improved and he opted to go home with home health rather than SNF. Patient was discharged in good condition. Home Meds Active Scripts Aspirin (Aspirin) 81 Mg Chew, 81 MG PO DAILY for 30 Days, #30 TAB 0 Refills Prov:KEE DAVIS MD 08/10/17 Sulfamethoxazole/Trimethoprim (Sulfamethoxazole-Tmp Ds Tablet) 1 Each Tablet, 1 TAB PO BID for 10 Days, #20 TAB Prov:KEE DAVIS MD 08/10/17 [Pending Collagenase Order] 1 EA EACH No Conflict Check, 0 EA XX PRN Y for WOUND CARE for 30 Days, #1 TUB 0 Refills Prov:KEE DAVIS MD 08/10/17 Acetaminophen (MAPAP) 325 Mg Tablet, 650 MG PO Q6H Y for PAIN AND OR ELEVATED TEMP for 30 Days, #45 TAB Prov:KEE DAVIS MD 08/10/17 Front Wheel Walker* (Front Wheel Walker*) 1 Each Dme, 1 EACH [facility] DIRECTED, #1 DME 0 Refills Prov:KEE DAVIS MD 08/07/17 Reported Medications Lisinopril* (Lisinopril*) 20 Mg Tablet, 20 MG PO DAILY, #30 TAB 08/03/17 Meloxicam* (Mobic*) 15 Mg Tablet, 15 MG PO DAILY 08/03/17 Carvedilol* (Carvedilol*) 12.5 Mg Tablet, 12.5 MG PO BID 08/03/17 Amlodipine Besylate* (Amlodipine Besylate*) 10 Mg Tablet, 10 MG PO DAILY 08/03/17 Alprazolam* (Alprazolam*) 1 Mg Tablet, 1 MG PO BID Y for ANXIETY, TAB 08/03/17 Pravastatin Sodium (Pravastatin Sodium) 20 Mg Tablet, 20 MG PO HS, TAB 08/03/17 Discontinued Scripts Aspirin (Aspirin) 81 Mg Chew, 81 MG PO DAILY for 30 Days, #30 TAB Prov:KEE DAVIS MD 08/10/17 Sulfamethoxazole/Trimethoprim (Sulfamethoxazole-Tmp Ds Tablet) 1 Each Tablet, 1 TAB PO BID for 10 Days, #20 TAB Prov:EKE DAVIS MD 08/10/17 [Pending Collagenase Order] 1 EA EACH No Conflict Check, 0 EA XX PRN Y for WOUND CARE for 30 Days, #1 TUB Prov:KEE DAVIS MD 08/10/17 Follow-up Plan 1. You will need to continue taking the antibiotics, Bactrim for 10 day total course 2. Apply warm compresses to left buttocks area 3. You will need to have home health continue local wound care with packing. Apply Santyl to the wound 4. Follow up with your Primary care physician in 1 week 5. If pain or wound worsens, or you start to experience fevers, chills, nausea, vomiting, or any other concerning symptoms, return to ED Primary Care Provider Care Physician No Primary Time spent on discharge: > 30 minutes Pending Labs Laboratory Tests Test 08/10/17 05:33 08/10/17 05:34 Sodium Level 139mmol/L (135-144) Potassium Level 4.5mmol/L (3.5-5.1) Chloride Level 100mmol/L (97-110) Carbon Dioxide Level 30mmol/L (21-31) Anion Gap 14 (8-16) Blood Urea Nitrogen 18mg/dl (7-20) Creatinine 0.75mg/dl (0.61-1.24) Glucose Level 130mg/dl (70-220) Calcium Level 9.4mg/dl (8.4-10.2) Phosphorus Level 4.0mg/dl (2.5-4.9) Magnesium Level 2.0mg/dl (1.7-2.5) Albumin 3.5g/dl (3.3-4.9) White Blood Count 8.610^3/ul (4.8-10.8) Red Blood Count 4.6210^6/ul (4.70-6.10) Hemoglobin 12.6g/dl (14.0-18.0) Hematocrit 40.1% (42.0-52.0) Mean Corpuscular Volume 86.8fl (82.0-101.0) Mean Corpuscular Hemoglobin 27.3pg (29.0-33.0) Mean Corpuscular Hemoglobin Concent 31.4g/dl (32.0-37.0) Red Cell Distribution Width 14.6% (11.5-14.5) Platelet Count 19934^3/UL (140-415) Mean Platelet Volume 10.2fl (7.4-10.4) Neutrophils % 59.8% (39.0-77.0) Lymphocytes % 20.7% (15.0-51.0) Monocytes % 10.1% (0.0-11.0) Eosinophils % 3.7% (0.0-7.0) Basophils % 0.8% (0.0-2.0) Nucleated Red Blood Cells % 0.0/100WBC (0.0-0.0) Neutrophils # 5.110^3/ul (1.6-7.5) Lymphocytes # 1.810^3/ul (0.8-2.9) Monocytes # 0.910^3/ul (0.3-0.9) Eosinophils # 0.310^3/ul (0.0-0.5) Basophils # 0.110^3/ul (0.0-0.1) Nucleated Red Blood Cells # 0.010^3/ul (0.0-0.0) KEE DAVIS MD Aug 10, 2017 11:54 0.110^3/ul (0.0-0.1) Nucleated Red Blood Cells # 0.010^3/ul (0.0-0.0) KEE DAVIS MD Aug 10, 2017 11:54
--- NOTE | 2017-08-10 11:54 | PN ---
Date/Time of Note Date/Time of Note DATE: 08/10/17 TIME: 11:50 Assessment/Plan VTE Prophylaxis VTE Prophylaxis Intervention: heparin Lines/Catheters IV Catheter Type (from Nrs): Saline Lock Urinary Cath still in place: No Assessment/Plan Assessment/Plan 1. Sepsis secondary to perianal abscess- resolved - ID on board and appreciate recommendations. Changed to Bactrim and tolerating well. Will continue for 10 days after discharge - WBC normalized 2. Left buttocks cellulitis s/p I&D - Surgery on board and recommendations appreciated. cleared by surgery for discharge home - New finding of hard mass and CT scan showed no noted fluid collections/masses - CT abd/pelvis shows phlegmonous changes, fluid 9mm x 4mm but no evidence of early abscess - Will continue packing and santyl to wound after discharge. Warm compresses as well to area 3. Rhabdomyolysis- resolved 4. Prediabetes - A1c 6.2 - Encourage proper diet and improve exercise regime 5. h/o CVA - stable 6. HTN - will continue to monitor and adjust medication as needed 7. Obesity - encourage improvement of diet and exercise 8. Disposition - Medically and Surgically cleared for discharge home with home health services. Will need to continue with packing changes, santyl, and warm compresses to left buttocks area. Subjective 24 Hr Interval Summary Free Text/Dictation Patient doing well and pain controlled with Tylenol. States still has a slight amount of discomfort but denies any fevers, nausea, vomiting, chest pain, or shortness of breath. Exam/Review of Systems Vital Signs Vitals Vital Signs Date Time Temp Pulse Resp B/P Pulse Ox O2 Delivery O2 Flow Rate FiO2 08/10/17 07:55 98.6 62 16 130/76 100 Intake and Output 08/09/17 08/09/17 08/10/17 15:00 23:00 07:00 Intake Total 550 ml 1360 ml 250 ml Balance 550 ml 1360 ml 250 ml Exam General: NAD, cooperative, awake and alert CVS: regular rate and rhythm, no murmurs Lungs: CTA b/l. no wheezes or crackles Abd: soft, NT, ND. no rebound or guarding Ext: no cyanosis, edema, or clubbing Skin: left buttocks wound packed, slight tenderness with palpation. no discharge or drainage Results Result Diagram: 08/10/17 0534 08/10/17 0533 Results 24 hrs Laboratory Tests Test 08/10/17 05:33 08/10/17 05:34 Sodium Level 139 Potassium Level 4.5 Chloride Level 100 Carbon Dioxide Level 30 Anion Gap 14 Blood Urea Nitrogen 18 Creatinine 0.75 Glucose Level 130 Calcium Level 9.4 Phosphorus Level 4.0 Magnesium Level 2.0 Albumin 3.5 White Blood Count 8.6 Red Blood Count 4.62 L Hemoglobin 12.6 L Hematocrit 40.1 L Mean Corpuscular Volume 86.8 Mean Corpuscular Hemoglobin 27.3 L Mean Corpuscular Hemoglobin Concent 31.4 L Red Cell Distribution Width 14.6 H Platelet Count 336 Mean Platelet Volume 10.2 Neutrophils % 59.8 Lymphocytes % 20.7 Monocytes % 10.1 Eosinophils % 3.7 Basophils % 0.8 Nucleated Red Blood Cells % 0.0 Neutrophils # 5.1 Lymphocytes # 1.8 Monocytes # 0.9 Eosinophils # 0.3 Basophils # 0.1 Nucleated Red Blood Cells # 0.0 Medications Medications Current Medications Alprazolam (Xanax) 1 mg Q12H PRN PO ANXIETY Last administered on 08/07/17 21: 40; Admin Dose 1 MG; Start 08/03/17 at 02:00 Meloxicam (Mobic) 15 mg DAILY PO Last administered on 08/10/17 09:18; Admin Dose 15 MG; Start 08/03/17 at 09:00 Atorvastatin Calcium (Lipitor) 20 mg HS PO Last administered on 08/09/17 21:04 ; Admin Dose 20 MG; Start 08/03/17 at 21:00 Aspirin (Aspirin) 81 mg DAILY PO Last administered on 08/10/17 09:18; Admin Dose 81 MG; Start 08/03/17 at 09:00 Ondansetron HCl (Zofran Inj) 4 mg Q6H PRN IV NAUSEA AND/OR VOMITING; Start at 02:00 Heparin Sodium (Porcine) (Heparin (5000 Units/0.5 ml)) 5,000 unit BID SC Last administered on 08/10/17 09:20; Admin Dose 5,000 UNIT; Start 08/03/17 at 09:00 Acetaminophen (Tylenol Tab) 650 mg Q6H PRN PO PAIN AND OR ELEVATED TEMP Last administered on 08/08/17 18:33; Admin Dose 650 MG; Start 08/03/17 at 02:00 Pantoprazole (Protonix Tab) 40 mg DAILY@06 PO Last administered on 08/10/17 06 :23; Admin Dose 40 MG; Start 08/03/17 at 06:00 Miscellaneous Information (Pending Santyl Order For Wound Care) This patient knight... PRN PRN XX WOUND CARE; Start 08/03/17 at 06:30 Amlodipine Besylate (Norvasc) 5 mg DAILY PO Last administered on 08/10/17 09: 19; Admin Dose 5 MG; Start 08/04/17 at 09:00 Carvedilol (Coreg) 25 mg BID PO Last administered on 08/10/17 09:19; Admin Dose 25 MG; Start 08/03/17 at 21:00 Lisinopril (Zestril) 40 mg DAILY PO Last administered on 08/10/17 09:19; Admin Dose 40 MG; Start 08/04/17 at 09:00 Trimethoprim/ Sulfamethoxazole (Bactrim (Ds)) 1 tab BID PO Last administered on 08/10/17 09:18; Admin Dose 1 TAB; Start 08/09/17 at 21:00 Acetaminophen/ Hydrocodone Bitart ([place] (5/325)) 1 tab Q6H PRN PO MODERATE PAIN LEVEL 4-6; Start 08/09/17 at 16:00 KEE DAVIS MD Aug 10, 2017 11:54
--- NOTE | 2017-08-10 12:40 | PN ---
Date/Time of Note Date/Time of Note DATE: 08/10/17 TIME: 12:37 Assessment/Plan Lines/Catheters IV Catheter Type (from Nrs): Saline Lock [place] in Place (from Nrs): No Assessment/Plan Chief Complaint/Hosp Course 1. Left buttock cellulitis w abscess. S/p I &D 08/07 (multiple thin tunneling tracks within the wound and one toward 5/6 o'clock that exits at skin level), continued drainage but odor improved; hard mass noted on left buttock smaller by palpation- no noted fluid collections/masses per CT and patient wound improved -may benefit from oral antibiotics at discharge -Offloading -Warm compress -local wound care with packing; to continue after discharge -will likely need snf vs. nursing for wound care in outpatient setting; -May be discharged per medical team 2. Significant leukocytosis with sepsis possibly secondary above possibly other : afebrile and leukocytosis normalized -As above 3. Morbid obese -Encourage diet optimization -Encourage exercise 4. CVA history -Medical optimization 5. Hypertension -Diet and medication optimization -Weight loss recommended 6. Cholelithiasis without cholecystitis: no abd pain, lft's normal -diet and lifestyle optimiation -monitor 7. Prediabetes: hga1c:6.2 -optimize sugar control -weight management 8. Diverticulosis: -gi followup -diet modification and careful monitoring 9. Bilateral renal cyst: asymptomatic; nl kidney function -renal follow up outpatient 10. Bilateral lung atelectasis possible pulmonary edema: comfortable on room air 11. Fat containing umbilical hernia: no pain from hernia -careful monitoring -poss hernia repair outpatient Thank you. Patient seen and examined in collaboration with Dr. Luis Lebron. Problems: Subjective 24 Hr Interval Summary Feels well. Left buttock wound without acute pain or excessive drainage. No odor. No fevers, chills, sob, congested cough, n/v/d/dysuria, cp, palpitations. Exam/Review of Systems Vital Signs Vitals Vital Signs Date Time Temp Pulse Resp B/P Pulse Ox O2 Delivery O2 Flow Rate FiO2 08/10/17 07:55 98.6 62 16 130/76 100 Intake and Output 08/09/17 08/09/17 08/10/17 15:00 23:00 07:00 Intake Total 550 ml 1360 ml 250 ml Balance 550 ml 1360 ml 250 ml Exam Free Text/Dictation Constitutional: alert, obese No distress Psych: pleasant Head: atraumatic, normocephalic Eyes: EOMI, PERRL, nl conjunctiva, No icteric ENMT: mucosa pink and moist, nl external ears & nose Neck: non-tender, supple Respiratory: normal air movement, No congested cough, No labored breathing Cardiovascular: regular rate and rhythm, sr Gastrointestinal: non-tender, soft, rotund No rebound or guarding Musculoskeletal: nl extremities to inspection, No joint tenderness Extremities: normal pulses, No calf tenderness, No cyanosis Neurological: nl mental status, nl speech, nl strength Skin: rash or lesions (left buttock wound with improved slough/debris continuing to drain, tunneling noted connecting open area towards 5/6 o'clock exiting at skin level with improved slough/debris, nontender, erythema much improved, induration improved) palpable hard mass on left buttock smaller by palpation No diaphoresis Lymph: nl lymph nodes, nontender Results Result Diagram: 08/10/17 0534 08/10/17 0533 AB GONCALVES NP Aug 10, 2017 12:40
[2017-08-10] MEDS: ACETAMINOPHEN 325 MG TAB PO PRN (13:59)
--- NOTE | 2017-08-18 22:57 | OPR ---
Date/Time of Note Date/Time of Note DATE: 08/18/17 TIME: 22:47 Operative Report Procedure Date: Aug 07, 2017 Preoperative Diagnosis Left buttock abscess Postoperative Diagnosis Left buttock abscess Operation/Procedure Performed Incision and drainage of left buttock abscess Surgeon see signature line Piercing Artist none Anesthesia Type: other Estimated Blood Loss: minimal Transfusion none Specimen none Grafts/Implants none Complications none Pt Condition Post Procedure: stable Procedure Description r/b/a explained to patient and responsible decision maker, patient and decision maker agreeable to proceed. Patient placed on his bed right lateral decub. Area prepped and draped sterilely. Time out done.Local anesthetic administered. Incision was made into the abscess cavity and pus with debris drained. wound was probed with finger and blunt instrument to break up any loculated fluid Wound was irrigated thoroughly. Wound packed. Covered with abd pad. AB GONCALVES NP Aug 18, 2017 22:57
== END 2017-08-10 15:55 | disposition home health service (06) | DRG 872 ==
LOC: E/R 20:00 → TEL 23:23 → PP2 08-08 20:40
PROVIDERS: ADMIT Internal Medicine; ATTEND Internal Medicine
PROC: 0H98XZZ Drainage of Buttock Skin, External Approach (ICD-10-PCS; principal; 2017-08-07)
DX: A41.9 Sepsis, unspecified organism (principal); E87.2 Acidosis; M62.82 Rhabdomyolysis; N28.1 Cyst of kidney, acquired; E66.01 Morbid (severe) obesity due to excess calories; K61.0 Anal abscess; L03.317 Cellulitis of buttock; J98.11 Atelectasis; R73.03 Prediabetes; I10 Essential (primary) hypertension; Z68.35 Body mass index [BMI] 35.0-35.9, adult; Z71.3 Dietary counseling and surveillance; E78.5 Hyperlipidemia, unspecified; E87.6 Hypokalemia; K80.20 Calculus of gallbladder without cholecystitis without obstruction; K57.90 Diverticulosis of intestine, part unspecified, without perforation or abscess without bleeding; K42.9 Umbilical hernia without obstruction or gangrene; Z86.73 Personal history of transient ischemic attack (TIA), and cerebral infarction without residual deficits; Z79.02 Long term (current) use of antithrombotics/antiplatelets; E66.9 Obesity, unspecified
CPT/HCPCS: 70450; 71010; 72193; 74177; 80048; 80053; 80061; 80069; 80202; 81001; 82550; 82553; 83036; 83605; 83735; 84100; 84484; 85025; 85610; 85651; 85730; 86140; 87040; 87086; 93005; 96365; 96375; 97161; 97167; J0360; J0692; J1644; J3370; J7030; J7040; J7050; Q9967

== ENCOUNTER 2017-11-22 16:22 | Inpatient (IN) | END 2017-11-27 19:36 | disposition home or self-care (01) | DRG 353 ==

== ENCOUNTER 2018-08-26 14:23 | Emergency (ER) | END 2018-08-26 19:35 | disposition home or self-care (01) ==

== ENCOUNTER 2019-06-30 16:51 | Inpatient (IN) | payer OTHER ==
[~2019-06-30] VITALS: Ht 165.1 cm; Wt 81.8 kg
[~2019-06-30 16:51] MED LIST changes: -AMLO-145 PO; +AMLO-147 PO; -ASPI-676; +CARV12.579 PO; -CLOP75TA27 PO; -CYCL-319 PO; -HYDR-3498 PO; -HYDR10TA36 PO; +LEVO750T8 PO; +LISI-471 PO; +MELO15TA30 PO; -NAPR-260 PO; -NAPR375T PO; -OMEP20CA9 PO; +PRAV20TA63 PO; -RISP2TAB3 PO
[2019-06-30] MEDS ORDERED: ACETAMINOPHEN 500 MG TAB PO STA (17:40)
[2019-06-30] MEDS ORDERED: SODIUM CHLORIDE 0.9% 1L BAG IV* STA (18:35)
[2019-06-30] MEDS ORDERED: CEFTRIAXONE 1 GM/50 ML (PMX) 50 ML IVPB STA (18:35)
[2019-06-30] MEDS ORDERED: AZITHROMYCIN 500MG/NS (PMX) 250 ML IV STA (18:35)
[2019-06-30] MEDS ORDERED: IBUPROFEN 600 MG TAB PO ONE (19:00)
[2019-06-30] MEDS ORDERED: ONDANSETRON 4 MG INJ IV PRN ×2 (20:00→21:00)
[2019-06-30] MEDS ORDERED: ACETAMINOPHEN 325 MG TAB PO PRN (20:00)
[2019-06-30] MEDS ORDERED: metroNIDAZOLE 500 MG/NS (PMX) 100 ML IVPB ONE (20:00)
[2019-06-30] MEDS ORDERED: morphine 2 MG INJ IV PRN (21:00)
[2019-06-30] MEDS ORDERED: NACL 0.9% 3 ML SYG IV SCH (21:00)
[2019-06-30] MEDS: DEXTROSE 5%-0.45% NACL 1,000 ML IV SCH (21:23)
[2019-06-30] MEDS: PIPER-TAZO 3.375 GM IV (PMX) 100 ML IVPB SCH (21:23)
[2019-07-01] MEDS: PIPER-TAZO 3.375 GM IV (PMX) 100 ML IVPB SCH ×4 (03:20→21:59)
[2019-07-01] MEDS ORDERED: VANCOMYCIN IV PER PHARMACY XX SCH (07:00)
[2019-07-01] MEDS: DEXTROSE 5%-0.45% NACL 1,000 ML IV SCH ×2 (07:57→16:36)
[2019-07-01] MEDS ORDERED: VANCOMYCIN 1.5 GM/NS 250 ML 250 ML IVPB ONE (08:30)
[2019-07-01 16:30] VITALS: BP 185/92; PULSE 85; RESP 18
[2019-07-01 17:28] VITALS: Ht 165.1 cm; Wt 81.8 kg
[2019-07-01 20:00] VITALS: BP 158/76; PULSE 74; RESP 20
[2019-07-01] MEDS: VANCOMYCIN 1 GM 250 ML IVPB SCH (21:59)
[2019-07-01] MEDS: HEPARIN 5,000 UNIT/1 ML VIAL SC SCH (22:02)
[2019-07-02] VITALS: BP 158/73; PULSE 70; RESP 20
[2019-07-02] MEDS: DEXTROSE 5%-0.45% NACL 1,000 ML IV SCH (02:43)
[2019-07-02] MEDS: PIPER-TAZO 3.375 GM IV (PMX) 100 ML IVPB SCH ×4 (03:00→22:15)
[2019-07-02 04:00] VITALS: BP 154/76; PULSE 65; RESP 20
[2019-07-02 07:24] VITALS: BP 155/89; PULSE 83; RESP 22
[2019-07-02] MEDS: HEPARIN 5,000 UNIT/1 ML VIAL SC SCH ×2 (08:57→22:21)
[2019-07-02] MEDS: VANCOMYCIN 1 GM 250 ML IVPB SCH (10:51)
[2019-07-02 11:03] VITALS: BP 182/97; PULSE 76; RESP 16
[2019-07-02] MEDS: hydrALAzine 20 MG INJ IV PRN (11:48)
[2019-07-02] MEDS: D5W-0.45 NACL + KCL 20 MEQ 1,000 ML IV SCH ×2 (13:03→22:00)
[2019-07-02] MEDS ORDERED: ACET/BUTAL/CAFF TAB PO PRN (14:30)
[2019-07-02 15:48] VITALS: BP 160/88; PULSE 78; RESP 18
[2019-07-02 20:00] VITALS: BP 157/77; PULSE 80; RESP 19
[2019-07-03] VITALS (9 sets, daily range): BP systolic 154–185; BP diastolic 81–97; PULSE 72–80; RESP 18–20
[2019-07-03] MEDS: PIPER-TAZO 3.375 GM IV (PMX) 100 ML IVPB SCH ×4 (03:37→20:09)
[2019-07-03] MEDS: D5W-0.45 NACL + KCL 20 MEQ 1,000 ML IV SCH ×2 (08:10→18:37)
[2019-07-03] MEDS: hydrALAzine 20 MG INJ IV PRN ×3 (08:11→20:47)
[2019-07-03] MEDS: HEPARIN 5,000 UNIT/1 ML VIAL SC SCH ×2 (08:16→20:52)
[2019-07-04] VITALS (8 sets, daily range): BP systolic 142–190; BP diastolic 72–92; PULSE 65–83; RESP 18–20
[2019-07-04] MEDS: PIPER-TAZO 3.375 GM IV (PMX) 100 ML IVPB SCH ×4 (03:19→20:51)
[2019-07-04] MEDS: hydrALAzine 20 MG INJ IV PRN (03:21)
[2019-07-04] MEDS: D5W-0.45 NACL + KCL 20 MEQ 1,000 ML IV SCH ×3 (04:00→20:57)
[2019-07-04] MEDS: ACETAMINOPHEN 500 MG TAB PO PRN ×2 (05:57→07:58)
[2019-07-04] MEDS: HEPARIN 5,000 UNIT/1 ML VIAL SC SCH ×2 (08:03→21:00)
[2019-07-04] MEDS ORDERED: INDOMETHACIN 50 MG SUPP PR ONE (12:00)
[2019-07-05] VITALS (8 sets, daily range): BP systolic 154–199; BP diastolic 74–95; PULSE 64–78; RESP 18–20
[2019-07-05] MEDS: hydrALAzine 20 MG INJ IV PRN ×2 (00:01→15:54)
[2019-07-05] MEDS ORDERED: hydrALAzine 20 MG INJ IV ONE (02:30)
[2019-07-05] MEDS: PIPER-TAZO 3.375 GM IV (PMX) 100 ML IVPB SCH ×4 (02:33→20:34)
[2019-07-05] MEDS: D5W-0.45 NACL + KCL 20 MEQ 1,000 ML IV SCH (10:08)
[2019-07-05] MEDS: HEPARIN 5,000 UNIT/1 ML VIAL SC SCH ×2 (10:12→20:50)
[2019-07-05] MEDS: LISINOPRIL 20 MG TAB PO SCH (15:54)
[2019-07-05] MEDS: AMLODIPINE 10 MG TAB PO SCH (15:54)
[2019-07-06] MEDS: PIPER-TAZO 3.375 GM IV (PMX) 100 ML IVPB SCH ×2 (02:03→08:09)
[2019-07-06 04:00] VITALS: BP 133/67; RESP 20
[2019-07-06 08:00] VITALS: BP 155/82; PULSE 67; RESP 20
[2019-07-06] MEDS: ASPIRIN (EC) 81 MG TAB PO SCH (08:09)
[2019-07-06] MEDS: AMLODIPINE 10 MG TAB PO SCH (08:11)
[2019-07-06] MEDS: LISINOPRIL 20 MG TAB PO SCH (08:11)
[2019-07-06] MEDS: HEPARIN 5,000 UNIT/1 ML VIAL SC SCH ×2 (08:12→21:00)
[2019-07-06 11:16] VITALS: BP 113/58; PULSE 60; RESP 24
[2019-07-06 15:44] VITALS: BP 143/77; PULSE 71; RESP 22
[2019-07-06 20:30] VITALS: BP 158/59; PULSE 66; RESP 20
[2019-07-07] VITALS: BP 138/66; PULSE 60; RESP 18
[2019-07-07 04:00] VITALS: BP 142/79; PULSE 66; RESP 20
[2019-07-07] MEDS ORDERED: LEVOFLOXACIN 750 MG TABLET PO SCH (06:00)
[2019-07-07 07:21] VITALS: BP 172/75; PULSE 67; RESP 19
[2019-07-07] MEDS: LISINOPRIL 20 MG TAB PO SCH (09:43)
[2019-07-07] MEDS: AMLODIPINE 10 MG TAB PO SCH (09:43)
[2019-07-07] MEDS: ASPIRIN (EC) 81 MG TAB PO SCH (09:44)
[2019-07-07] MEDS: HEPARIN 5,000 UNIT/1 ML VIAL SC SCH (09:56)
[2019-07-07 10:58] VITALS: BP 142/81; PULSE 70; RESP 18
[2019-07-07 15:17] VITALS: BP 153/74; PULSE 80; RESP 19
== END 2019-07-07 17:45 | disposition home or self-care (01) | DRG 872 ==
LOC: FTE 16:51 → TEL 19:47
PROVIDERS: ADMIT Internal Medicine; ATTEND Internal Medicine
DX: A41.9 Sepsis, unspecified organism (principal); K80.20 Calculus of gallbladder without cholecystitis without obstruction; I10 Essential (primary) hypertension; R74.0 Nonspecific elevation of levels of transaminase and lactic acid dehydrogenase [LDH]; E78.5 Hyperlipidemia, unspecified; F03.90 Unspecified dementia, unspecified severity, without behavioral disturbance, psychotic disturbance, mood disturbance, and anxiety; Z68.30 Body mass index [BMI] 30.0-30.9, adult; I69.998 Other sequelae following unspecified cerebrovascular disease; E66.01 Morbid (severe) obesity due to excess calories; E11.9 Type 2 diabetes mellitus without complications
CPT/HCPCS: 36415; 71046; 74181; 76705; 80053; 80061; 81001; 83605; 83690; 83735; 84100; 84484; 85025; 85610; 86038; 86255; 86704; 86709; 86803; 87340; 93005; 96374; 96375; 97161; 97167; J0360; J0456; J0696; J1644; J2270; J2405; J2543; J3370; J3480; J7030; J7042

== ENCOUNTER 2019-08-11 10:17 | Emergency (ER) | payer OTHER ==
[~2019-08-11] VITALS: Wt 105.0 kg
[~2019-08-11 10:17] MED LIST changes: +BACI28.34 TOP; +CEPH-443 PO; -PRAV20TA63 PO
[2019-08-11 10:45] VITALS: BP 148/77; PULSE 88; RESP 20
== END 2019-08-11 12:38 | disposition home or self-care (01) ==
LOC: E/R 10:17
DX: L08.9 Local infection of the skin and subcutaneous tissue, unspecified (principal); I10 Essential (primary) hypertension; E66.9 Obesity, unspecified; Z86.73 Personal history of transient ischemic attack (TIA), and cerebral infarction without residual deficits; Z87.891 Personal history of nicotine dependence
CPT/HCPCS: 99283